=== PATIENT | female | born 1995 | race Caucasian/White ===

== ENCOUNTER 2019-12-22 20:08 | Emergency (ER) | payer MEDICAID, SELFPAY ==
[2019-12-22 20:17] VITALS: BP 126/72; PULSE 103; RESP 18; TEMP 36.1; O2SAT 99
--- NOTE | 2019-12-22 20:23 | ECG_ITS ---
Measurements Intervals [place] Rate: 93 P: 42 [place]: 146 QRS: 39 QRSD: 80 T: 10 QT: 342 QTc: 427 Interpretive Statements SINUS RHYTHM EARLY PRECORDIAL R/S TRANSITION NONSPECIFIC T-WAVE ABNORMALITY- INFERIOR LEADS BASELINE ARTIFACT- II, III, V4-V5 BORDERLINE ECG Electronically Signed On 12-23-2019 7:02:00 CDT by Lenny Abbott D.O.
--- NOTE | 2019-12-22 20:27 | ED.GENADULT ---
HPI - General Adult General Chief complaint: Weakness Stated complaint: weakness, dizziness Time Seen by Provider: 12/22/19 20:17 Source: RN notes reviewed History of Present Illness HPI narrative: Patient presents to emergency department from home for weakness. Patient states that she is approximately 8 weeks and seen her MANUSCRIPT READER yesterday and was diagnosed with a genetic mutation and was started on progesterone folic acid and baby aspirin. States that starting this medication she has been having some feelings of weakness as well as dizziness is worse with standing. She states she has had some associated nausea she denies any fevers or chills chest pain shortness of breath abdominal pain vaginal bleeding or discharge or any other symptoms. Patient states that she is followed by Dr. Christopher's office Related Data Allergies Allergy/AdvReac Type Severity Reaction Status Date / Time No Known Allergies Allergy Unverified 10/19/16 18:13 Review of Systems Review of Systems: Narrative: Gen.: Denies fevers or chills Eyes: Denies eye pain or visual change ENT: Denies congestion Respiratory: Denies shortness of breath or cough CV: Denies chest pain or palpitations GI: Denies abdominal pain or diarrhea. Reports nausea denies burning, urgency, frequency or hematuria Musculoskeletal: Denies back pain or muscle pain Neuro: See HPI Skin: Denies rash Except as documented, all other systems reviewed and negative ON LICENSE OF [facility] Social History Social History (Updated 12/22/19 @ 20:28 by Juan Francisco Sotelo DO) Smoking status: Never smoker Exam Narrative: Exam Narrative: APPEARANCE: No acute distress, nontoxic, resting in bed EYES: EOMI, PERRL HEENT: Normocephalic, atraumatic, OMM RESPIRATORY: No respiratory distress Clear to auscultation bilaterally with no rhonchi wheezing or rales. CARDIOVASCULAR: Regular rate and rhythm without murmurs rubs or gallops. ABDOMINAL: Soft, nontender, nondistended, no rebound or guarding MUSCULOSKELETAl: Moves all extremities. No clubbing, cyanosis or edema. NEURO: Awake and alert. Following commands, speech normal, no focal deficits SKIN:: Warm, dry. No rashes lesions or abrasions PSYCHIATRIC: Normal affect/mood, Course Course Emergency Course: Called and discussed with Dr. Graff for Dr. Perkins presentation work-up. At this time recommends the patient stop taking her folic acid and progesterone. Recommends the patient be started on Macrobid for UTI we will follow the patient as an outpatient Patient states dizziness is improved at this time Discussed with patient results of workup and diagnosis. Discussed need for follow-up with primary care, proper use of medication, and reasons to return to the emergency department. Patient understands and agrees to current treatment plan Vital Signs Vital signs: Vital Signs Temperature 96.9 F L 12/22/19 20:17 Pulse Rate 103 H 12/22/19 20:17 Respiratory Rate 18 12/22/19 20:17 Blood Pressure 126/72 12/22/19 20:17 Pulse Oximetry 99 12/22/19 20:17 Temperature 96.9 F L 12/22/19 20:17 Pulse Rate 102 H 12/22/19 22:45 Respiratory Rate 18 12/22/19 22:45 Blood Pressure 130/79 12/22/19 22:45 Pulse Oximetry 100 12/22/19 22:45 Medical Decision Making Vital Signs Vital Signs: Vital Signs Temperature 96.9 F L 12/22/19 20:17 Pulse Rate 103 H 12/22/19 20:17 Respiratory Rate 18 12/22/19 20:17 Blood Pressure 126/72 12/22/19 20:17 Pulse Oximetry 99 12/22/19 20:17 Temperature 96.9 F L 12/22/19 20:17 Pulse Rate 102 H 12/22/19 22:45 Respiratory Rate 18 12/22/19 22:45 Blood Pressure 130/79 12/22/19 22:45 Pulse Oximetry 100 12/22/19 22:45 Lab Data Result diagrams: 12/22/19 20:50 12/22/19 20:50 Labs: Lab Results 12/22/19 12/22/19 12/22/19 Range/Units 20:50 20:50 22:06 WBC 10.7 H (4.5-10.0) K/mm3 RBC 4.18 L (4.2-5.4) M/mm3 Hgb 11.9 L (12.0-15.0) g
[2019-12-22] MEDS: SODIUM CHLORIDE 0.9% IV 1,000 ML 999 ML IV CONT (20:52)
[2019-12-22 20:56] LABS: Basophils Percent Auto 0.3 % (0.2-1.2); Eosinophils Absolute Auto 0.2 K/mm3 (0-0.3); Eosinophils Percent Auto 1.5 % (0-4.4); Hematocrit 35.6 % (37.0-47.0); Hemoglobin 11.9 g/dL (12.0-15.0); Immature Granulocyte Absolute 0.03 K/mm3 (0.00-0.031); Immature Granulocyte Percent A 0.3 % (0-0.5); Lymphocytes Percent Auto 33.7 % (18.3-44.2); Mean Corpuscular HGB Conc 33.4 g/dl (32-36); Mean Corpuscular Hemoglobin 28.5 pg (26-34); Mean Corpuscular Volume 85.2 fl (80-100); Monocytes Absolute Auto 0.6 K/mm3 (0.1-0.6); Monocytes Percent Auto 5.8 % (2.6-8.5); Neutrophils Absolute Auto 6.3 K/mm3 (1.3-6.7); Neutrophils Percent Auto 58.4 % (45.5-73.1); Platelet Count Result 364 k/mm3 (150-375); Red Blood Count 4.18 M/mm3 (4.2-5.4); Red Cell Distribution Width 13.5 % (11.5-14.5); White Blood Count 10.7 K/mm3 (4.5-10.0)
[2019-12-22 21:05] VITALS: BP 125/77; PULSE 95; RESP 18; O2SAT 100
[2019-12-22 21:08] LABS: Alanine Aminotransferase 23 U/L (4-35); Albumin Level 4.1 g/dL (3.5-5.1); Alkaline Phosphatase 53 U/L (38-126); Anion Gap 9 mmol/L (8-16); Aspartate Amino Transferase 25 U/L (14-36); Bilirubin,Total 0.2 mg/dL (0.2-1.3); Blood Urea Nitrogen 8 mg/dL (7-17); Calcium 9.3 mg/dL (8.4-10.2); Carbon Dioxide 26 mmol/L (22-30); Chloride 102 mmol/L (98-107); Estimated CRCL calculation 126 ml/min; Estimated Glomerular Filt Rate > 60; Glucose 103 mg/dL (65-105); Potassium 3.6 mmol/L (3.4-5.0); Sodium 137 mmol/L (137-145)
--- NOTE | 2019-12-22 21:45 | PC.NURSE ---
pt ambulated to restroom w/ no difficulty. denies dizziness.
[2019-12-22 22:14] VITALS: BP 127/79; BP 132/79; BP 136/78; PULSE 103; PULSE 105
[2019-12-22 22:15] LABS: Add Urine Microscopic? YES; Appearance Urine Cloudy (Clear); Bacteria Urine 2+ /hpf; Bilirubin Urine Negative (Negative); Blood Urine Negative (Negative); Color Urine Yellow (Yellow); Glucose Urine UA Negative (Negative); Ketones Urine Negative (Negative); Leukocyte Esterase Ur 3+ LEU/UL (Negative); Mucus Urine Rare /lpf; Nitrate Urine Negative (Negative); Protein Urine 1+ mg/dL (Negative); Squamous Epithelial Cell Urine Many /hpf (Few); WBC Urine 31-50 /hpf
[2019-12-22 22:45] VITALS: BP 130/79; PULSE 102; RESP 18; O2SAT 100
[2019-12-22 23:46] VITALS: BP 123/74; PULSE 96; RESP 18; O2SAT 100
== END 2019-12-22 23:47 | disposition home or self-care (01) ==
PROVIDERS: Emergency Provider Emergency Medicine
DX: N39.0 Urinary tract infection, site not specified (principal); R42 Dizziness and giddiness; R94.31 Abnormal electrocardiogram [ECG] [EKG]
CPT/HCPCS: 36415; 80053; 81001; 85025; 87086; 87088; 93005; 96361; 96365; 99284; J0696; J7030

== ENCOUNTER 2020-01-02 13:13 | Outpatient (CLI) | payer MEDICAID, SELFPAY ==
[2020-01-02 15:52] LABS: Glucose 1 Hour PP 50gm Dose 124 mg/dL
[2020-01-04 12:24] LABS: CMV IgG Antibody >10.00 U/mL (<0.60)
[2020-01-05 11:34] LABS: Homocysteine 5.8 umol/L (<10.4)
== END 2020-01-02 13:14 | disposition home or self-care (01) ==
LOC: ANHLAB 13:15
PROVIDERS: PCP Emergency Medicine; Visit Provider Obstetrics & Gynecology
DX: Z34.91 Encounter for supervision of normal pregnancy, unspecified, first trimester (principal); E66.9 Obesity, unspecified; Z3A.00 Weeks of gestation of pregnancy not specified
CPT/HCPCS: 36415; 82947; 83090; 86644; 86747

== ENCOUNTER 2020-03-16 15:30 | Observation (INO) | payer OTHER, SELFPAY ==
[2020-03-16 15:30] VITALS: BMI 35.0
[2020-03-16 16:27] VITALS: BP 117/65; PULSE 99; TEMP 36.3
[2020-03-16 16:31] VITALS: BP 77/44; PULSE 105
[2020-03-16 16:33] VITALS: BP 93/66; PULSE 105
[2020-03-16 16:34] VITALS: BP 93/66; PULSE 105
[2020-03-16 16:40] LABS: Add Urine Microscopic? YES; Amorphous Sediment Urine Few; Appearance Urine Clear (Clear); Bacteria Urine Trace /hpf; Bilirubin Urine Negative (Negative); Blood Urine Negative (Negative); Color Urine Yellow (Yellow); Glucose Urine UA Negative (Negative); Ketones Urine Negative (Negative); Leukocyte Esterase Ur 1+ LEU/UL (Negative); Mucus Urine Rare /lpf; Nitrate Urine Negative (Negative); Protein Urine Negative (Negative); RBC Urine 0-2 /hpf (0-2); Specific Grav Ur 1.016 (1.001-1.035); Squamous Epithelial Cell Urine Few /hpf (Few); Urobilinogen Urine Negative mg/dL (<2.0)
--- NOTE | 2020-03-16 17:01 | LDADM ---
This patient, Maren Booker, was admitted to OB Post 113 on 03/16/20 at 15:30. Plans for labor, pain management and were discussed with patient. Patient/family oriented to hospital policies and general routines including ID bracelet, bed and alarms, visiting hours, pain management, procedures, bathroom and other care routines, personal items, smoking policy, room service/diet and guest tray routines, infant security routines, and visiting hours. Patient/Family are encouraged to report perceived risks to care and to ask questions if they do not understand what they are told or what they should do. See OBIX for further documentation.
--- NOTE | 2020-03-16 17:01 | OBADM ---
This patient, Maren Booker, admitted to the OB room OB Post 113 for observation. Patient/family oriented to hospital policies and general routines including ID bracelet, bed and alarms, visiting hours, pain management, procedures, bathroom and other care routines, personal items, smoking policy, room service/diet, and visiting hours. Patient/Family are encouraged to report perceived risks to care and to ask questions if they do not understand what they are told or what they should do.
--- NOTE | 2020-03-17 08:45 | PM.OBTRLD ---
OB - Triage/Final Diagnosis Evaluation Laboratory results: Laboratory Tests 03/16/20 16:29 Urine Color Yellow Urine Appearance Clear Urine pH 6.0 Ur Specific [place] 1.016 Urine Protein Negative Urine Glucose (UA) Negative Urine Ketones Negative Ur Blood (Man) Negative Urine Nitrate Negative Urine Bilirubin Negative Urine Urobilinogen Negative Leukocyte Esterase Rfl 1+ H Urine RBC 0-2 Urine WBC 7-9 H Ur Squamous Epith Cells Few Amorphous Sediment Few H Urine Bacteria Trace Urine Mucus Rare Vital signs: Vital Signs - 24 hr 03/16/20 16:27 03/16/20 16:31 03/16/20 16:33 Temperature 36.3 C L Pulse Rate 99 105 H 105 H Blood Pressure 117/65 77/44 L 93/66 L 03/16/20 16:34 Temperature Pulse Rate 105 H Blood Pressure 93/66 L Final Diagnosis (1) Abdominal pain affecting : Code(s): O26.899 - Other specified related conditions, unspecified trimester; R10.9 - Unspecified abdominal pain Status: Acute
== END 2020-03-16 17:20 | disposition home or self-care (01) ==
PROVIDERS: Admitting Provider Obstetrics & Gynecology; PCP Emergency Medicine; Visit Provider Obstetrics & Gynecology
DX: O26.899 Other specified pregnancy related conditions, unspecified trimester (principal); R10.9 Unspecified abdominal pain; Z3A.00 Weeks of gestation of pregnancy not specified
CPT/HCPCS: 81001; 87086; 87088; G0378; G0379

== ENCOUNTER 2020-04-26 18:04 | Outpatient (RCR) | payer OTHER, SELFPAY ==
[2020-04-26 18:50] VITALS: BP 124/71; PULSE 118
--- NOTE | 2020-04-28 07:00 | PM.OBTRLD ---
OB - Triage/Final Diagnosis Visit Information Comments/Additional reasons for admission: I have assessed the risk for this patient, Maren Booker, and determined that she would benefit from observation care. Final Diagnosis (1) Decreased movement: Code(s): O36.8190 - Decreased movements, unspecified trimester, not applicable or unspecified Status: Acute
== END 2020-07-11 10:47 | disposition home or self-care (01) ==
LOC: ANHOBOP 18:04
PROVIDERS: PCP Obstetrics & Gynecology; Visit Provider Obstetrics & Gynecology
DX: O36.8120 Decreased fetal movements, second trimester, not applicable or unspecified (principal); Z3A.24 24 weeks gestation of pregnancy
CPT/HCPCS: 59025

== ENCOUNTER 2020-05-14 16:27 | Observation (INO) | payer OTHER, SELFPAY ==
[2020-05-14 16:48] VITALS: BP 127/69; PULSE 117
[2020-05-14 17:01] VITALS: BP 97/56; PULSE 112; TEMP 36.6
[2020-05-14 17:02] VITALS: BMI 36.6
--- NOTE | 2020-05-14 17:08 | OBADM ---
This patient, Maren Booker, admitted to the OB room 119 at 1627 for observation for pelvic pressure. Patient/family oriented to hospital policies and general routines including ID bracelet, bed and alarms, visiting hours, pain management, procedures, bathroom and other care routines, personal items, smoking policy, room service/diet, and visiting hours. Patient/Family are encouraged to report perceived risks to care and to ask questions if they do not understand what they are told or what they should do.
[2020-05-14 17:17] LABS: Add Urine Microscopic? YES; Appearance Urine Cloudy (Clear); Bacteria Urine 1+ /hpf; Bilirubin Urine Negative (Negative); Blood Urine Negative (Negative); Color Urine Yellow (Yellow); Glucose Urine UA Negative (Negative); Ketones Urine Negative (Negative); Leukocyte Esterase Ur 3+ LEU/UL (Negative); Mucus Urine Rare /lpf; Nitrate Urine Negative (Negative); Protein Urine 1+ mg/dL (Negative); Squamous Epithelial Cell Urine Moderate /hpf (Few); Urobilinogen Urine Negative mg/dL (<2.0); WBC Urine 31-50 /hpf
--- NOTE | 2020-05-16 10:39 | PM.OBTRLD ---
OB - Triage/Final Diagnosis Visit Information Comments/Additional reasons for admission: I have assessed the risk for this patient, Maren Booker, and determined that she would benefit from observation care. Evaluation Laboratory results: Laboratory Tests 05/14/20 17:07 Urine Color Yellow Urine Appearance Cloudy H Urine pH 6.0 Ur Specific [place] 1.020 Urine Protein 1+ H Urine Glucose (UA) Negative Urine Ketones Negative Ur Blood (Man) Negative Urine Nitrate Negative Urine Bilirubin Negative Urine Urobilinogen Negative Leukocyte Esterase Rfl 3+ H Urine RBC 3-5 H Urine WBC 31-50 H Ur Squamous Epith Cells Moderate H Urine Bacteria 1+ H Urine Mucus Rare Final Diagnosis (1) UTI (urinary tract infection) during : Code(s): O23.40 - Unspecified infection of urinary tract in , unspecified trimester Status: Acute
== END 2020-05-14 18:00 | disposition home or self-care (01) ==
PROVIDERS: Admitting Provider Obstetrics & Gynecology; Visit Provider Obstetrics & Gynecology
DX: O23.42 Unspecified infection of urinary tract in pregnancy, second trimester (principal); Z3A.27 27 weeks gestation of pregnancy
CPT/HCPCS: 81001; 87086; 87088; G0378; G0379

== ENCOUNTER 2020-07-02 14:52 | Outpatient (RCR) | payer OTHER, SELFPAY ==
--- NOTE | ~2020-07-02 | US_ITS ---
EXAMINATION: US OB limited w BPP DATE: 07/02/2020 16:34 INDICATION: Decreased movement. Third trimester. TECHNIQUE: Real-time pelvic ultrasound was performed. COMPARISON: None. FINDINGS: There is a single living fetus in vertex presentation. The placenta is posterior. heart rate i s 152 beats per minute (bpm). The amniotic fluid index is 12.6 cm, which is normal. Biophysical profile performed by the technologist: breathing (30 sec sustained breathing in 30 minutes): 2 out of 2 movement (3 gross body movements in 30 minutes): 2 out of 2 tone (one episode of bpzcmhu-qcphifhyy-zdqhaer limb movement): 2 out of 2 Amniotic fluid pocket (2 cm): 2 out of 2 Total score: 8 out of 8 IMPRESSION: 1. Single living fetus in vertex presentation. 2. Biophysical profile 8 out of 8. Reviewed, dictated and finalized at location A.
[2020-07-02 16:45] VITALS: BP 111/69; PULSE 120
== END 2020-08-08 07:33 | disposition home or self-care (01) ==
LOC: ANHOBOP 14:52
PROVIDERS: Visit Provider Obstetrics & Gynecology
DX: O36.5930 Maternal care for other known or suspected poor fetal growth, third trimester, not applicable or unspecified (principal); Z3A.34 34 weeks gestation of pregnancy
CPT/HCPCS: 59025; 76815; 76819

== ENCOUNTER 2020-07-23 15:42 | Observation (INO) | payer OTHER, SELFPAY ==
[2020-07-23 16:06] VITALS: BP 114/66; PULSE 101
[2020-07-23 16:15] VITALS: BP 113/73; PULSE 108
[2020-07-23 16:30] VITALS: BP 112/68; PULSE 111
[2020-07-23 16:45] VITALS: BP 115/74; PULSE 104
[2020-07-23 17:18] VITALS: BMI 35.2
--- NOTE | 2020-07-23 17:23 | PC.NURSE ---
Notifed Dr Reyes of pt status and orders to discharge home follow up with scheduled visit.
--- NOTE | 2020-07-25 12:32 | PM.OBTRLD ---
OB - Triage/Final Diagnosis Visit Information Comments/Additional reasons for admission: I have assessed the risk for this patient, Maren Booker, and determined that she would benefit from observation care. Final Diagnosis (1) Vaginal discharge during : Code(s): O26.899 - Other specified related conditions, unspecified trimester; N89.8 - Other specified noninflammatory disorders of vagina Status: Acute
== END 2020-07-23 17:30 | disposition home or self-care (01) ==
LOC: ANHOBPP 17:10 → ANHOBOP 07-25 09:24 → ANHOBPP 07-25 09:25
PROVIDERS: Admitting Provider Obstetrics & Gynecology; Visit Provider Obstetrics & Gynecology
DX: O26.893 Other specified pregnancy related conditions, third trimester (principal); N89.8 Other specified noninflammatory disorders of vagina; Z3A.37 37 weeks gestation of pregnancy
CPT/HCPCS: 59025; 84112; G0378; G0379

== ENCOUNTER 2020-07-27 05:15 | Observation (INO) | payer OTHER, SELFPAY ==
--- NOTE | 2020-07-27 05:15 | OBADM ---
This patient, Maren Booker, admitted to the OB room Labor/Delivery/Recovery 106 for observation. Patient/family oriented to hospital policies and general routines including ID bracelet, bed and alarms, visiting hours, pain management, procedures, bathroom and other care routines, personal items, smoking policy, room service/diet, and visiting hours. Patient/Family are encouraged to report perceived risks to care and to ask questions if they do not understand what they are told or what they should do.
[2020-07-27 05:35] VITALS: BP 110/77; PULSE 105
[2020-07-27 05:46] VITALS: BP 99/65; PULSE 101
[2020-07-27 06:01] VITALS: BP 99/64; PULSE 107
[2020-07-27 06:15] VITALS: BP 99/68; PULSE 98
[2020-07-27 06:22] VITALS: BMI 38.3
[2020-07-27 06:30] VITALS: BP 117/82; PULSE 102
--- NOTE | 2020-07-31 06:05 | PM.OBTRLD ---
OB - Triage/Final Diagnosis Visit Information Comments/Additional reasons for admission: I have assessed the risk for this patient, Maren Booker, and determined that she would benefit from observation care. Final Diagnosis (1) Abdominal pain affecting : Code(s): O26.899 - Other specified related conditions, unspecified trimester; R10.9 - Unspecified abdominal pain Status: Acute
== END 2020-07-27 06:50 | disposition home or self-care (01) ==
PROVIDERS: Admitting Provider Obstetrics & Gynecology; Visit Provider Obstetrics & Gynecology
DX: O26.899 Other specified pregnancy related conditions, unspecified trimester (principal); R10.9 Unspecified abdominal pain; Z3A.00 Weeks of gestation of pregnancy not specified
CPT/HCPCS: G0378; G0379

== ENCOUNTER 2020-08-06 06:57 | Inpatient (IN) | payer OTHER, SELFPAY ==
[2020-08-06] VITALS (225 sets, daily range): BP systolic 72–135; BP diastolic 39–103; PULSE 25–176; TEMP 35.8–36.8; O2SAT 82–100; BMI 38.4
--- OUTSIDE RECORDS SUMMARY | 2020-08-06 07:01 | XMS_ITS | Encounter Summary ---
:1995 Author Reason for Visit return OB visit Assessment and Plan 1. Routine care ? glucose tolerance test, ge stational, 1-hour ? HIV (1+2) Ab screen, serum ? CBC Discussion Note: None recorded.Patient educational handouts: No information available. Plan of Care Reminders Provider Appointments None ? ? recorded. Lab Glucose [place] [facility] Tolerance Test, 05/06/2020 Hospital (Lab) Gestational, 1-Hour ? HIV (1+2) Ab [address] [facility] Screen, Serum 05/06/2020 Hospital (Lab) ? Cbc [place] [facility] 05/06/2020 [facility] (Lab) Referral None ? ? recorded. Procedures None ? ? recorded. Surgeries None ? ? recorded. Imaging None ? ? recorded. Medications Name Start Date ? ? clotrimazole 1 % vaginal cream ? INSERT 1 APPLICATORFUL EVERY DAY BY VAGINAL ROUTE AT BEDTIME. ondansetron HCl 4 mg tablet 04/08/2020 TK 2 TS PO BID Notes: PNV; iron supplement wilder y Medications Administered None recorded. Vitals Weight Blood Pressure 198.4 lbs 112/74 mm[Hg]
--- OUTSIDE RECORDS SUMMARY | 2020-08-06 07:01 | XMS_ITS | Encounter Summary ---
:1995 Author Reason for Visit return OB visit Assessment and Plan 1. Routine care Discussion Note: None recorded.Patient educational handouts: No information available. Plan of Care Reminders Provider Appointments None ? ? recorded. Lab None ? ? recorded. Referral None ? ? recorded. Procedures None [...] Administered None recorded. Vitals Weight Blood Pressure 199 lbs 108/62 mm[Hg] Results Lab Results None recorded. Allergies Code Code System Name Reaction Severity Onset NKDA ? ? ? Problems Name Status Onset Date Source ? Active 12/31/2019 History Procedures Date Name Performed by ? ? [facility] Information not avai lab
--- OUTSIDE RECORDS SUMMARY | 2020-08-06 07:01 | XMS_ITS ---
:1995 Author Care Team Providers Name Role Phone DAVINA DAVIDOSN MD Primary Care Provider [phone] Allergies Code Code System Name Reaction Severity Status Onset NKDA ? Medications Name Status Start Date Stop Date ? ? aspirin 81 mg tablet,delayed release Completed ? 04/08/2020 TK 1 T PO QD folic acid 1 mg tablet Completed ? Take 1 tablet 4 times a day by oral route for 90 days. nitrofurantoin monohydrate/macrocrystals 100 mg capsule Complete d ? 12/31/2019 TK 1 C PO BID ondansetron HCl 4 mg tablet Active 04/08/2020 Not available TK 2 TS PO BID progesterone micronized 200 mg capsule Completed ? 01/28/2020 TK 1 C PO BID Notes: PNV Problems Name Status Onset Date Source ? Active 12/31/2019 ? Procedures Date Name Performed by ? ? Extraction of [place] [facility] Information n ot available 12/31/2019 US, Obstetric, Transvaginal [facility] (One Call Scheduling) [address], [place] [address] (Work Place) Results Lab Results Date Name Specimen Result Interpretation Description Value Range Status Address ? 01/02/2020 Glucose ? No observation ? ? ? [facility] Tolerance Test, recorded. Hospital Gestational,
--- OUTSIDE RECORDS SUMMARY | 2020-08-06 07:01 | XMS_ITS | Encounter Summary ---
[...] Administered None recorded. Vitals Weight Blood Pressure 205 lbs 122/82 mm[Hg] Results Lab Results None recorded. Allergies Code Code System Name Reaction Severity Onset NKDA ? ? ? Problems Name Status Onset Date Source ? Active 12/31/2019 History Procedures Date Name Performed by ? ? [place] [facility] Information not avai labl
--- OUTSIDE RECORDS SUMMARY | 2020-08-06 07:01 | XMS_ITS | Encounter Summary ---
[...] Administered None recorded. Vitals Weight Blood Pressure 200 lbs 110/64 mm[Hg] Results Lab Results None recorded. Allergies Code Code System Name Reaction Severity Onset NKDA ? ? ? Problems Name Status Onset Date Source ? Active 12/31/2019 History Procedures Date Name Performed by ? ? [place] [facility] Information not sooai rosetta
--- OUTSIDE RECORDS SUMMARY | 2020-08-06 07:01 | XMS_ITS ---
:1995 Author Care Team Providers Name Role Phone Maxx Graff Primary Care Provider Unavailable Allergies Code Code System Name Reaction Severity Status Onset NKDA ? Medications Name Status Start Date Stop Date ? ? aspirin 81 mg tablet,delayed release Active ? Not available TK 1 T PO QD clotrimazole 1 % vaginal cream Active ? N ot available INSERT 1 APPLICATORFUL EVERY DAY BY VAGINAL ROUTE AT BEDTIME. folic acid 1 mg tablet Active ? Not avail able TK 1 T PO QID UTD nitrofurantoin monohydrate/macrocrystals 100 mg capsule Complete d ? 06/03/2020 TAKE 1 CAPSULE BY MOUTH TWICE A DAY FOR 7 DAYS ondansetron HCl 4 mg tablet Active 04/08/2020 Not available TK 2 TS PO BID progesterone micronized 200 mg capsule Active ? Not available TK 1 C PO BID Notes: PNV; iron supplement wilder y Problems Name Status Onset Date Source ? Active 12/31/2019 History Procedures Date Name Performed by ? ? [place] [facility] Information not avai lable Results Lab Results Date Name Specimen Result Interpretation Description Value Range Status Address ? 07/09/2020 Streptococcus ? Strep Gp B negative negati ve Final [facility]: Group B, [id number], [address], Specimen
--- OUTSIDE RECORDS SUMMARY | 2020-08-06 07:01 | XMS_ITS | Encounter Summary ---
:1995 Author Reason for Visit return OB visit Assessment and Plan 1. Routine care 2. Vaginal irritation ? clotrimazole 1 % vaginal c ream Discussion Note: None recorded.Patient educational handouts: No [...] Administered None recorded. Vitals Weight Blood Pressure 203.2 lbs 122/82 mm[Hg] Results Lab Results None recorded. Allergies Code Code System Name Reaction Severity Onset NKDA ? ? ? Problems Name Status Onset Date Source ? Active 12/31/2019 History Procedures Date Name Performed by ?
--- OUTSIDE RECORDS SUMMARY | 2020-08-06 07:01 | XMS_ITS | Encounter Summary ---
:1995 Author Reason for Visit return OB visit Assessment and Plan 1. Routine care ? culture, urine + sensitivi ty Discussion Note: None recorded.Patient educational handouts: No information available. Plan of Care Reminders Provider Appointments None recorded. ? ? Lab Culture, Urine [facility] + Sensitivity 06/03/2020 Hospital (Lab) Referral None recorded. ? ? Procedures None recorded. ? ? Surgeries None recorded. ? ? Imaging None recorded. ? ? Medications Name Start Date ? ? clotrimazole 1 % vaginal cream ? INSERT 1 APPLICATORFUL EVERY DAY BY VAGINAL ROUTE AT BEDTIME. ondansetron HCl 4 mg tablet 04/08/2020 TK 2 TS PO BID Notes: PNV; iron supplement wilder y Medications Administered None recorded. Vitals Weight Blood Pressure 200 lbs 130/80 mm[Hg] Results Lab Results Date Name Specimen Result Interpretation Description Value Range Status Address ? 07/08/2020 Culture, Urine ? No observation ? ? ? [place] + Sensitivity recorded. [facility] (Lab): [address] 0
--- OUTSIDE RECORDS SUMMARY | 2020-08-06 07:01 | XMS_ITS | Encounter Summary ---
:1995 Author Reason for Visit new OB visit Assessment and Plan 1. Routine [...] recorded. Vitals Weight Blood Pressure 203.2 lbs 118/70 mm[Hg] Results Lab Results None recorded. Allergies Code Code System Name Reaction Severity Onset NKDA ? ? ? Problems Name Status Onset Date Source ? Active 12/31/2019 History Procedures Date Name Performed by ? ? [place] [facility] Information not sooai rosetta
--- OUTSIDE RECORDS SUMMARY | 2020-08-06 07:01 | XMS_ITS | Encounter Summary ---
:1995 Author Reason for Visit return OB visit Assessment and Plan 1. Routine care ? streptococcus group B, cul ture, unspecified specimen Discussion Note: None recorded.Patient educational handouts: No information available. Plan of Care Reminders Provider Appointments None recorded. ? ? Lab Streptococcus [facility], Culture, 07/09/2020 Hospital (Lab) Unspecified Specimen Referral None recorded. ? ? Procedures None [...] Administered None recorded. Vitals Weight Blood Pressure 202.4 lbs 118/80 mm[Hg] Results Lab Results Date Name Specimen Result Interpretation Description Value Range Status Address ? 07/09/2020 Streptococcus ? Strep Gp negative negative Final [facility]: Group B, [id number], [address], Unspecified
--- NOTE | 2020-08-06 07:14 | PM.IMHP ---
H&P: HPI History of Present Illness Date/Time: 08/06/20 07:14 Maren is a 25yo @ 39.2wks (SALO 08/11/20) who presents for elective IOL. She has had regular care with Erica ELDRIDGE. She reports irregular contractions. No VB or LOF. Good movement. Her is complicated by: - Obesity; BMI 37 - Varicella non-immune Chief Complaint: induction of labor Review of Systems Review of Systems: All systems reviewed & are unremarkable except as noted in HPI and below (HPI) [facility] Family History Family History Other Unknown family medical history Social History Social History Smoking status: Never smoker Substance use: never Spiritual care concerns: No Meds Home Medications and Allergies Home Medications Medication Instructions Recorded Confirmed Type vit-ferrous sulfat-FA 1 tablet PO DAILY 03/16/20 07/27/20 History ondansetron HCl 4 mg PO Q8H PRN 05/14/20 05/14/20 History ondansetron HCl 4 mg PO Q4-6H PRN 07/27/20 07/27/20 History Allergies Allergy/AdvReac Type Severity Reaction Status Date / Time No Known Allergies Allergy Verified 07/15/20 12:41 Exam Const: General: cooperative, comfortable and no acute distress Nutritional Appearance: obese Resp: Effort & Inspection: normal respiratory effort and able to speak in complete sentences Cardio: Rate: regular rate GI: Inspection: non-distended GI Palp: No abdominal tenderness and Yes Soft to palpation : Other: FHT's: 150's/ mod kunal/ + accels/ no decels - cat 1 TOCO: irregular ctx's Cervix: 2/50/-2, anterior, soft Membranes: intact, GBS negative Presentataion: cephalic Skin: General skin exam: normal color Neuro: General: patient oriented x3 Extrem: General: normal to inspection Psych: Appearance: grossly normal Affect: normal affect Attitude: cooperative Assessment and Plan Assessment and plan (1) : Qualifiers: Weeks of gestation: 39 weeks Qualified Code(s): Z3A.39 - 39 weeks gestation of Code(s): Z34.90 - Encounter for supervision of normal , unspecified, unspecified trimester Status: Acute (2) Encounter for induction of labor: Code(s): Z34.90 - Encounter for supervision of normal , unspecified, unspecified trimester Status: Acute Additional Plan - Admit to L&D for elective IOL - Pitocin per protocol - Continuous monitoring; currently reassuring - GBS negative; abx not indicated - Anesthesia consult PRN pain
--- NOTE | 2020-08-06 07:30 | WPDHPUPDATE1 ---
History and Physical Update Update Date/Time: 08/06/20 07:30 History and Physical has been reviewed, including an updated exam of the patient. There are NO changes in the patient's condition. Risks, benefits, and alternatives have been discussed and questions answered. Patient agrees to proceed with procedure.
[2020-08-06 07:58] LABS: Basophils Percent Auto 0.2 % (0.2-1.2); Eosinophils Absolute Auto 0.1 K/mm3 (0-0.3); Eosinophils Percent Auto 0.7 % (0-4.4); Hemoglobin 10.6 g/dL (12.0-15.0); Immature Granulocyte Absolute 0.02 K/mm3 (0.00-0.031); Immature Granulocyte Percent A 0.2 % (0-0.5); Lymphocytes Absolute Auto 2.03 K/mm3 (0.9-3.2); Lymphocytes Percent Auto 24.7 % (18.3-44.2); Mean Corpuscular HGB Conc 32.1 g/dl (32-36); Mean Corpuscular Hemoglobin 27.4 pg (26-34); Mean Corpuscular Volume 85.3 fl (80-100); Mean Platelet Volume 11.4 fl (7.4-10.4); Monocytes Absolute Auto 0.5 K/mm3 (0.1-0.6); Monocytes Percent Auto 5.8 % (2.6-8.5); Neutrophils Absolute Auto 5.6 K/mm3 (1.3-6.7); Neutrophils Percent Auto 68.4 % (45.5-73.1); Platelet Count Result 245 k/mm3 (150-375); Red Blood Count 3.87 M/mm3 (4.2-5.4); Red Cell Distribution Width 15.2 % (11.5-14.5); White Blood Count 8.2 K/mm3 (4.5-10.0)
[2020-08-06] MEDS: OXYTOCIN 30 UNITS/NS 500 ML 30 UNITS/500 ML BAG 6 UNITS IV CONT (08:01)
[2020-08-06] MEDS: LACTATED RINGERS 1,000 ML 125 ML IV CONT ×3 (08:01→19:02)
--- NOTE | 2020-08-06 08:32 | P.PNAN_ITS ---
Anes - Eval Pre Procedure Procedure: labor epidural Date/Time: 08/06/20 08:32 Surgeon: Gamal Preop Diagnosis: Pain during labor Pre Op Diagnosis: induction Patient Data Age: 25 Gender: F Height: Weight: Last Vital Signs Temp 36.8 C 08/06/20 07:53 Pulse 103 H 08/06/20 08:00 BP 122/74 08/06/20 08:00 Allergies Allergy/AdvReac Type Severity Reaction Status Date / Time No Known Allergies Allergy Verified 07/15/20 12:41 Home Medications Medication Instructions Recorded Confirmed Type vit-ferrous sulfat-FA 1 tablet PO DAILY 03/16/20 08/06/20 History Laboratory Tests 08/06/20 08/06/20 07:45 07:45 WBC 8.2 K/mm3 K/mm3 (4.5-10.0) RBC 3.87 M/mm3 L M/mm3 (4.2-5.4) Hgb 10.6 g/dL L g/dL (12.0-15.0) Hct 33.0 % L % (37.0-47.0) MCV 85.3 fl fl (80-100) MCH 27.4 pg pg (26-34) MCHC 32.1 g/dl g/dl (32-36) RDW 15.2 % H % (11.5-14.5) Plt Count 245 k/mm3 k/mm3 (150-375) MPV 11.4 fl H fl (7.4-10.4) Immature Gran % (Auto) 0.2 % % (0-0.5) Neut % (Auto) 68.4 % % (45.5-73.1) Lymph % (Auto) 24.7 % % (18.3-44.2) [place] % (Auto) 5.8 % % (2.6-8.5) Eos % (Auto) 0.7 % % (0-4.4) Baso % (Auto) 0.2 % % (0.2-1.2) Lymph # (Auto) 2.03 K/mm3 K/mm3 (0.9-3.2) [place] # (Auto) 0.5 K/mm3 K/mm3 (0.1-0.6) Eos # (Auto) 0.1 K/mm3 K/mm3 (0-0.3) Baso # (Auto) 0.0 K/mm3 K/mm3 (0.0-0.1) Abs Immat Gran (auto) 0.02 K/mm3 K/mm3 (0.00-0.031) Absolute Neuts (auto) 5.6 K/mm3 K/mm3 (1.3-6.7) Absolute Nucleated RBC 0.0 K/mm3 K/mm3 (0.0-0.012) Nucleated RBC % 0.0 % % (0.0-0.2) RPR Pending Patient hx anesthesia problems: none Family hx anesthesia problems: none [facility] Family History Family History Other Unknown family medical history Social History Social History Smoking status: Never smoker Substance use: never Spiritual care concerns: No Exam Day of Procedure 08/06/20 08:32 Patient weight: obese Neurological: alert and oriented
[2020-08-06 09:49] LABS: Rapid Plasma Reagin Non-Reactive (NonReactive)
--- NOTE | 2020-08-06 09:49 | LDADM ---
This patient, Maren Booker, was admitted to Labor/Delivery/Recovery 108 on 08/06/20 at 06:57. Plans for labor, pain management and were discussed with patient. Patient/family oriented to hospital policies and general routines including ID bracelet, bed and alarms, visiting hours, pain management, procedures, bathroom and other care routines, personal items, smoking policy, room service/diet and guest tray routines, security routines, and visiting hours. Patient/Family are encouraged to report perceived risks to care and to ask questions if they do not understand what they are told or what they should do. See OBIX for further documentation.
[2020-08-06] MEDS: fentaNYL CITRATE INJ (*CRX) 100 MCG/2 ML VIAL 50 MCG IV PUSH (10:31)
--- NOTE | 2020-08-06 12:02 | PM.OBPNLAB ---
Pain Control Date/time seen: 08/06/20 12:02 Pain control: narcotic analgesia Pelvic Exam Dilation (cm): 2 (.5) Effacement (%): 50 station: -3 Amniotic membrane status: Ruptured (clear, AROM 1200) Contractions Monitor mode: External Contraction frequency: 2 (-3) Contraction pattern: Regular Status status: Category l Assessment and Plan Pitocin rate (mU/min): 10 Assessment: induction ongoing Plan: continuous present management Comments: - anesthesia consult PRN pain
[2020-08-06] MEDS: ONDANSETRON INJ 4 MG/2 ML VIAL IV PUSH (14:39)
[2020-08-06] MEDS: SODIUM CHLORIDE 0.9% IV 300 ML 600 ML I-UTERINE (15:51)
--- NOTE | 2020-08-06 16:57 | PM.OBPNLAB ---
Pain Control Date/time seen: 08/06/20 16:57 Pain control: epidural Pelvic Exam Dilation (cm): 4 (.5) Effacement (%): 80 station: -2 Amniotic membrane status: Ruptured (clear, AROM 1200) Contractions Monitor mode: Internal Contraction frequency: 2 (-3) Contraction pattern: Regular Intrauterine tone measurement: 210 Status status: Category ll Comments: variables; now s/p amnio and improved Assessment and Plan Pitocin rate (mU/min): 12 Assessment: induction ongoing Plan: continuous present management
[2020-08-07] VITALS (129 sets, daily range): BP systolic 100–133; BP diastolic 52–101; PULSE 25–155; RESP 18–20; TEMP 36.1–36.8; O2SAT 86–100
[2020-08-07] MEDS: AMPICILLIN 2 GM/NS 100 ML 2 GM/100 ML BAG IVPB (06:12)
--- NOTE | 2020-08-07 06:45 | PM.OBPNLAB ---
Pain Control Date/time seen: 08/07/20 06:45 Pain control: epidural Pelvic Exam Dilation (cm): 10 (.5) Effacement (%): 100 station: 0 Amniotic membrane status: Ruptured (clear, AROM 1200 on 08/06/20) Contractions Monitor mode: Internal Contraction frequency: 2 (-3) Contraction pattern: Regular Intrauterine tone measurement: 210 Status status: Category l Assessment and Plan Assessment: active labor Comments: will begin pushing soon; pt not feeling much pressure yet (epidural was just bolused)
[2020-08-07] MEDS: OXYTOCIN 30 UNITS/NS 500 ML 30 UNITS/500 ML BAG 125 UNITS IV CONT (08:25)
--- NOTE | 2020-08-07 08:30 | PM.OBPRVD ---
OB - Delivery Note Procedure Delivery date: 08/07/20 events: Labor Induction Intrapartal events: Prolonged Labor > 20 hours and Deceleration Induction method: per pitocin protocol Delivery augmentation: rupture of membranes Delivery monitor: external FHT and internal uterine Route of delivery: Laceration Description: Perineal - 2nd Degree and Labial (extending to R labia) Delivery repair: vicryl Quantitative Blood Loss (ml): 148 Anesthesia type: Epidural Disposition: floor [place] Baby Date of : 08/07/20 Time of : 08:07 Weeks of gestation at delivery: 39 (.3) gender: Male Weight (pounds): 7 Weight (ounces): 0 presentation: vertex position: Right Occiput Anterior Placenta delivery description: Expressed cord vessel description: 3 Vessels and Delayed Cord Clamping score one minute: 7 score five minutes: 9 Narrative: Maren progressed to complete dilation. She pushed for approximately 1 hour with good effort. She delivered the head over intact perineum. No nuchal cord was palpated. She easily delivered the shoulders and body without complications. The infant was immediately placed skin to skin, with stimulation he then cried. Delayed cord clamping was performed. The cord was then clamped and cut. A segment of cord was collected for cord gases. The remaining cord blood was collected for typing. With Pitocin running and gentle downward traction on the umbilical cord, the placenta delivered without complications. Bleeding was noted and bimanual exam showed slight uterine atony which responded to massage. The patient was examined and a second-degree perineal laceration was found extending into the right labia. The second-degree perineal laceration was repaired using 2 0 Vicryl in a normal fashion. The right labial laceration was repaired using 2 separate 3 0 Vicryl U-stitches, and was reapproximated well. Good fundal tone was palpated with minimal bleeding. Sponge, lap, instrument, and needle counts were correct at the end of the procedure. Mom and baby were left bonding in the birthing suite in stable condition.
[2020-08-07] MEDS: BENZOCAINE 20% AER SPR (*SP) 56 GM CAN 1 SPRAY TOPICAL (09:13)
[2020-08-07] MEDS: IBUPROFEN 600 MG TABLET PO ×3 (09:14→23:06)
[2020-08-07] MEDS: HYDROcodone/acetaminophen (*CRX) 5-325 MG TABLET 1 TAB PO ×2 (09:15→16:30)
[2020-08-07] MEDS: WITCH HAZEL 40 PADS 1 PAD TOPICAL (09:31)
--- NOTE | 2020-08-07 11:10 | PC.NURSE ---
Patient transferred to post room #279 per wheelchair from labor and delivery. Support person present. Oriented to unit, room, information board, rooming in, admission packet and security measures. Patient verbalizes understanding.
--- NOTE | 2020-08-07 13:05 | PC.NURSE ---
Mother called out for assist with feeding., reporting eagerly fed for first feeding. Mother breastfed for 10 minutes then gave a bottle. Reviewed feeding cues, frequencies, duration of feedings, feeding elimination flow sheet, and signs of adequate intake. Demonstrated stimulation techniques to wake for feeding. Assisted with to breast. Reviewed positioning/alignment in cross cradle, holding breast in ?U? hold and guided asymmetrical latch on. able to latch correctly. nursed eagerly, with steady draws and frequent swallowing noted. Reviewed signs of a correct latch, effective nursing and suck swallow ratio. would slip to shallow latch, mother reports tenderness. Demonstrated how to adjust latch more deeply while feeding. Mother reports she can feel change in latch and has no tenderness. Nipple care reviewed of lanolin after feedings, warm compresses and gel pads as needed. Suggested mother stimulate while feeding to increase stimulate, increase intake and to assist with maintaining deep latch. Instructed mother to call out for RN assistance if she is unable to latch infant for feeding or she has discomfort with nursing. Instructed feeding should be initiated three hours from start of last feeding or if feeding cues are noted before. Mother voiced understanding of information shared.
[2020-08-08 00:20] VITALS: BP 103/71; PULSE 104; RESP 16; TEMP 37.1; O2SAT 98
[2020-08-08] MEDS: HYDROcodone/acetaminophen (*CRX) 5-325 MG TABLET 1 TAB PO (03:02)
[2020-08-08 04:45] VITALS: BP 120/69; PULSE 100; RESP 16; TEMP 36.8; O2SAT 99
[2020-08-08 05:37] LABS: Hematocrit 27.7 % (37.0-47.0)
[2020-08-08 07:35] VITALS: BP 127/74; PULSE 112; RESP 16; TEMP 36.9; O2SAT 100
--- NOTE | 2020-08-08 08:25 | WPDANLDPN2 ---
Anes-Prog Note L&D Date/Time: 08/08/20 08:25 Comfortable throughout: labor Neuraxial method: epidural Epidural/Spinal procedure site: clean & non-tender Neuro status: Neuro function grossly intact. Cardiovascular status: normal Respiratory status: normal Airway patency: baseline Mental status: baseline Post-Op hydration status: normal Vital Signs: Last Vital Signs Temp 36.8 C 08/08/20 04:45 Pulse 100 08/08/20 04:45 Resp 16 08/08/20 04:45 BP 120/69 08/08/20 04:45 Pulse Ox 99 08/08/20 04:45 Pain score (VAS): none Patient feedback: Patient satisfied with anesthetic care.
[2020-08-08] MEDS: DOCUSATE SODIUM 100 MG CAPSULE PO ×2 (09:32→16:11)
[2020-08-08] MEDS: POLYSACCHARIDE IRON COMPLEX 150 MG CAPSULE PO ×2 (09:32→16:11)
--- NOTE | 2020-08-08 10:21 | PM.OBPNVD ---
OB - PN: Subj Subjective Date/time seen: 08/08/20 10:21 PPD#1 Maren reports doing well today, would like to go home this afternoon. She reports her bleeding is light. Her pain is controlled. She is ambulating. her bleeding is light. She has tolerated regular diet. She has voided and passed gas. She would like her son to get circumcised. She is breast and bottle feeding. She denies fever, chills, CP, SOB, LINDA, vision changes, N/V, palpitations or dizziness. OB - PN: Obj Data Labs CBC & Chem 7: 08/08/20 03:12 Labs: Laboratory Results - last 24 hr 08/08/20 03:12 Hgb 9.0 L Hct 27.7 L OB - PN A/P Assessment and Plan (1) Status post vaginal delivery: Status: Acute (2) Second degree perineal laceration: Code(s): O70.1 - Second degree perineal laceration during delivery Status: Acute Plan day: 1 Plan: routine care and discharge home Comments: - f/u in 4 wks - pelvic rest, take meds as prescribed - ER return precautions discussed: abd pain/n/v, fever, bleeding, htn - Her son was circumcised w/o issue Time Spent With Patient Time: Total time spent is greater than 50% in coordination of care (as documented) at patient's floor/unit and/or counseling patient: Review of Systems Review of Systems: All systems reviewed & are unremarkable except as noted in HPI and below (HPI) Exam Const: General: cooperative, comfortable and no acute distress Nutritional Appearance: obese Resp: Effort & Inspection: normal respiratory effort and able to speak in complete sentences Auscultation: clear to auscultation bilaterally Cardio: Rate: regular rate GI: Inspection: normal to inspection and non-distended GI Palp: No abdominal tenderness and Yes Soft to palpation Auscultation: normal bowel sounds : Other: fundus firm at umbilicus Skin: General skin exam: normal color Neuro: General: patient oriented x3 Extrem: General: normal to inspection Psych: Appearance: grossly normal Affect: normal affect Attitude: cooperative
--- NOTE | 2020-08-08 16:00 | PC.NURSE ---
Patient viewed the discharge video Mother & Baby Care, The First Two Weeks . Patient was given the opportunity and encouraged to ask questions. Patient verbalized understanding of information shared and has been given the mother/baby guide for home reference.
[2020-08-08] MEDS: IBUPROFEN 600 MG TABLET PO (16:11)
[2020-08-08 19:00] VITALS: BP 113/80; PULSE 98; RESP 18; TEMP 36.9; O2SAT 100
[2020-08-09 09:45] VITALS: BP 119/75; PULSE 78; RESP 18; TEMP 36.9; O2SAT 100
[2020-08-09] MEDS: DOCUSATE SODIUM 100 MG CAPSULE PO (10:01)
[2020-08-09] MEDS: POLYSACCHARIDE IRON COMPLEX 150 MG CAPSULE PO (10:02)
[2020-08-09] MEDS: IBUPROFEN 600 MG TABLET PO (10:02)
[2020-08-12 10:25] VITALS: BP 117/86; PULSE 77; RESP 16; TEMP 37; O2SAT 99
--- NOTE | 2020-08-24 07:11 | PM.OBDSVD ---
DS: Admitting Diagnosis Admitting Diagnosis Admitting Diagnosis: induction of labor DS: Discharge Diagnosis Discharge Diagnosis (1) Second degree perineal laceration: Code(s): O70.1 - Second degree perineal laceration during delivery Status: Acute (2) Status post vaginal delivery: Status: Acute OB - DS: Summary OB Procedures : Ultrasound OB Procedures Intrapartum: Spontaneous Vag Delivery OB Procedures: : None Peripartum Data Delivery Method: Natural Vaginal Laceration Description: Perineal - 2nd Degree and Labial complications: none 1: Gender: Male Disposition of : home Status at Discharge Functional status at discharge: independent ambulation Overall status at discharge: patient is back to baseline Time Spent with Patient Time attestation: Total time spent providing and/or coordinating discharge services: Exam Const: General: cooperative, healthy appearing, comfortable and no acute distress Resp: Effort & Inspection: normal respiratory effort and able to speak in complete sentences Auscultation: clear to auscultation bilaterally Cardio: Rate: regular rate GI: Inspection: normal to inspection and non-distended GI Palp: No abdominal tenderness and Yes Soft to palpation Auscultation: normal bowel sounds : Other: fundus firm Skin: General skin exam: normal color Neuro: General: patient oriented x3 Extrem: General: normal to inspection Psych: Appearance: grossly normal Affect: normal affect Attitude: cooperative Discharge Plan Discharge Attending physician on discharge: Iliana Yeung Discharging Clinician: Iliana Yeung Anticipated Discharge Date/Time: 08/08/20 17:00 Patient Disposition: Home, Self-Care Activity: pelvic rest Diet: regular Discharge Instructions: Education: Mom and Baby Guide Given to: Mother Follow-Up: Call your delivering provider's office for an appointment to be seen in: 4 Weeks Mom and baby should come to the [facility] for the follow-up appointment. Appointment Date/Time: August 12, 2020 at 10:00 am What to expect at your follow-up visit: Blood Pressure Check Physical Assessment Call [phone] if you are unable to keep your appointment time. BREAST CARE: * Wear a snug supportive bra. * For engorgement discomfort: Breast Feeding: * Apply warm moist washcloths * Express milk as needed to relieve engorgement * Wear loose clothing * For sore nipples: * Identify correct latch-on * Apply warm moist washcloths before and after nursing * Air dry nipples after nursing * May apply Lansinoh cream to nipples EPISIOTOMY/PERINEAL CARE: * Until bleeding stops, use your taran bottle after urinating * Change your pad frequently throughout the day * You may take sitz baths several times a day (fill your bathtub with warm water and soak for 20 minutes.) Do NOT bathe in the water * No tub baths until seen by your physician - You may shower ACTIVITY: * Rest as much as possible. * Do not exercise or lift anything heavier than your baby (such as laundry or other children.) * Avoid stairs or driving as much as possible. * Do not put anything into the vagina. No douching, tampons, or sexual activity until seen by physician. NOTIFY PHYSICIAN IF YOU HAVE ANY QUESTIONS OR IF ANY OF THE FOLLOWING SYMPTOMS OCCUR: * If your perineum becomes red, swollen, or more painful than what you have experienced in the hospital. * If your vaginal bleeding becomes foul smelling. * If your vaginal bleeding becomes more heavy than a period or if your bleeding changes from pink to bright red. However, you may pass an occasional walnut-sized clot once or twice for the first week . * If you experience a sharp, shooting pain in you calves. * If you discover a hard, reddened area on your prabhjot
== END 2020-08-09 13:52 | disposition home or self-care (01) | DRG 560 ==
LOC: ANHLDR 06:59 → ANHOB2 08-07 11:46
PROVIDERS: Admitting Provider Obstetrics & Gynecology; Visit Provider Obstetrics & Gynecology
DX: O99.214 Obesity complicating childbirth (principal); Z37.0 Single live birth; Z3A.39 39 weeks gestation of pregnancy; E66.9 Obesity, unspecified; O42.92 Full-term premature rupture of membranes, unspecified as to length of time between rupture and onset of labor; O70.1 Second degree perineal laceration during delivery
CPT/HCPCS: 36415; 85014; 85018; 85025; 86592; 86850; 86900; 86901; A9270; J0290; J2405; J2590; J2795; J3010; J7030; J7120

== ENCOUNTER 2020-09-29 20:29 | Emergency (ER) | payer OTHER, SELFPAY ==
--- NOTE | ~2020-09-29 | XR_ITS ---
EXAMINATION: XR shoulder RT min 2V DATE: 09/29/2020 20:44 INDICATION: Right shoulder injury and pain. TECHNIQUE: 4 views of right shoulder were obtained. COMPARISON: None. FINDINGS: Bone alignment is normal. No fracture. Joint spaces are well maintained. IMPRESSION: 1. Normal right shoulder. Reviewed, dictated and finalized at location A. IMPRESSION: 1. Normal right shoulder.
[2020-09-29 20:30] VITALS: BP 115/82; PULSE 88; RESP 20; TEMP 36.7; O2SAT 100
--- NOTE | 2020-09-29 23:01 | ED.GENADULT ---
HPI - General Adult General Chief complaint: Extremity Injury, Upper Stated complaint: fall down stairs/ shoulder injury Time Seen by Provider: 09/29/20 22:39 History of Present Illness HPI narrative: Patient is a 25-year-old female presents the emergency department chief complaint of right shoulder pain. Patient reports that she fell down the stairs struck her shoulder against the wall reports that when she did this she felt a pop and reported pain in the anterior shoulder. Patient states the pain is worse with range of motion denies focal weakness reported that initially when it happened she felt a tingling sensation in her arm patient states that subsequently resolved. Patient denies any other injuries denies head injury denies loss of consciousness. Related Data Home Medications Medication Instructions Recorded Confirmed ferrous sulfate [Iron (ferrous 325 mg PO DAILY 09/29/20 sulfate)] Allergies Allergy/AdvReac Type Severity Reaction Status Date / Time No Known Allergies Allergy Verified 09/29/20 21:18 Review of Systems Review of Systems: A 10 system review of systems was completed on the patient and is negative except for what is stated in the HPI. Nursing and ancillary documentation was reviewed. [facility] Family History Family History Other Unknown family medical history Social History Social History Smoking status: Never smoker Second hand tobacco smoke exposure: No Substance use: never Gender identity (if verbalized by the patient): Female Spiritual care concerns: No Exam Narrative: GENERAL: Well-appearing, well-nourished, and in no acute distress. HEAD: Normocephalic, atraumatic. EYES: PERRLA and EOMI. ENT: Nares clear, no rhinorrhea or epistaxis. Mucous membranes moist. NECK: Supple. CHEST: Clear to auscultation. No respiratory distress. HEART: Regular rate and rhythm. No murmur heard. Normal peripheral pulses. ABDOMEN: Soft, nontender, nondistended, normal active bowel sounds. EXTREMITIES: Normal range of motion. No edema. There is tenderness to palpation in the anterior shoulder on the right side there is no deformity noted. Patient has intact motor and sensory distal to the injury patient does have limited active range of motion of the right shoulder due to pain. SKIN: Warm, dry, no rash. NEURO: No focal deficits. Alert and oriented x3. PSYCH: Normal mood and affect. Course Vital Signs Vital signs: Vital Signs Temperature 36.7 C 09/29/20 20:30 Pulse Rate 88 09/29/20 20:30 Respiratory Rate 20 09/29/20 20:30 Blood Pressure 115/82 09/29/20 20:30 Pulse Oximetry 100 09/29/20 20:30 Temperature 36.7 C 09/29/20 20:30 Pulse Rate 88 09/29/20 20:30 Respiratory Rate 20 09/29/20 20:30 Blood Pressure 115/82 09/29/20 20:30 Pulse Oximetry 100 09/29/20 20:30 Medical Decision Making Vital Signs Vital Signs: Vital Signs Temperature 36.7 C 09/29/20 20:30 Pulse Rate 88 09/29/20 20:30 Respiratory Rate 20 09/29/20 20:30 Blood Pressure 115/82 09/29/20 20:30 Pulse Oximetry 100 09/29/20 20:30 Temperature 36.7 C 09/29/20 20:30 Pulse Rate 88 09/29/20 20:30 Respiratory Rate 09/29/20 20:30 Blood Pressure 115/82 09/29/20 20:30 Pulse Oximetry 100 09/29/20 20:30 Discharge Plan Discharge Clinical Impression: Shoulder sprain Patient Disposition: Home, Self-Care Condition: Stable Instructions: Antibiotic Form, How to Use a Sling (ED), Shoulder Sprain (ED), Shoulder Pain (ED) Prescriptions: No Action ferrous sulfate [Iron (ferrous sulfate)] 325 mg (65 mg iron) Tablet 325 mg PO DAILY RF: 0 Follow-up/Referrals: Salvador Narayanan MD [Physician] - PHYSICIAN,ADVICE LINE RN [Primary Care Provider] - Time of Disposition: 23:03
[2020-09-29] MEDS: IBUPROFEN 600 MG TABLET PO (23:22)
[2020-09-29 23:30] VITALS: BP 112/76; PULSE 82; RESP 16; O2SAT 100
== END 2020-09-29 23:30 | disposition home or self-care (01) ==
PROVIDERS: Emergency Provider Emergency Medicine
DX: S43.401A Unspecified sprain of right shoulder joint, initial encounter (principal); W10.9XXA Fall (on) (from) unspecified stairs and steps, initial encounter
CPT/HCPCS: 73030; 99283; A4565; A9270

== ENCOUNTER 2020-10-03 23:19 | Emergency (ER) | payer OTHER, SELFPAY ==
--- NOTE | ~2020-10-03 | XR_ITS ---
EXAMINATION: XR chest 2V DATE: 10/03/2020 23:35 INDICATION: Chest tightness. Dyspnea. TECHNIQUE: Frontal and lateral views of the chest were obtained. COMPARISON: None. FINDINGS: There is no pneumonia, pleural effusion, or pneumothorax. The heart size is normal. IMPRESSION: 1. No acute cardiopulmonary disease. Reviewed, dictated and finalized at location A.
--- NOTE | ~2020-10-03 | CT_ITS ---
EXAMINATION: CT abdomen pelvis w con DATE: 10/04/2020 02:15 INDICATION: Epigastric pain. Nausea. TECHNIQUE: Computed tomography (CT) of the abdomen and pelvis was performed with 100 cc Omnipaque 350 intravenous contrast. The dose-length product was 721.41 mGy-cm. Automated exposure control and iter ative reconstruction technique were employed. COMPARISON: None. FINDINGS: Lung bases are unremarkable. Heart size normal. No significant pleural or pericardial effus ion. Gallbladder is mildly distended, although no secondary findings to suggest cholecystitis. The li mari, spleen, pancreas, adrenal glands and kidneys are unremarkable. No hydronephrosis. IUD present. N o abnormal pelvic masses or fluid collections. No significant vascular abnormality. No lymphadenopath y. No acute osseous abnormality. IMPRESSION: 1. No acute abdominal abnormality. Reviewed, dictated and finalized at location A.
--- NOTE | 2020-10-03 23:20 | ECG_ITS ---
Measurements Intervals [place] Rate: 82 P: 33 OR: 149 QRS: 29 QRSD: 97 T: 7 QT: 380 QTc: 445 Interpretive Statements SINUS RHYTHM EARLY PRECORDIAL R/S TRANSITION BORDERLINE ECG Electronically Signed On 10-04-2020 8:04:04 CDT by Lenny Abbott D.O.
[2020-10-03 23:38] LABS: Basophils Percent Auto 0.3 % (0.2-1.2); Eosinophils Absolute Auto 0.1 K/mm3 (0-0.3); Hematocrit 35.4 % (37.0-47.0); Hemoglobin 11.1 g/dL (12.0-15.0); Immature Granulocyte Absolute 0.05 K/mm3 (0.00-0.031); Immature Granulocyte Percent A 0.5 % (0-0.5); Lymphocytes Absolute Auto 3.96 K/mm3 (0.9-3.2); Lymphocytes Percent Auto 37.4 % (18.3-44.2); Mean Corpuscular HGB Conc 31.4 g/dl (32-36); Mean Corpuscular Volume 86.1 fl (80-100); Mean Platelet Volume 10.4 fl (7.4-10.4); Monocytes Absolute Auto 0.6 K/mm3 (0.1-0.6); Monocytes Percent Auto 5.4 % (2.6-8.5); Neutrophils Absolute Auto 5.9 K/mm3 (1.3-6.7); Neutrophils Percent Auto 55.4 % (45.5-73.1); Platelet Count Result 375 k/mm3 (150-375); Red Blood Count 4.11 M/mm3 (4.2-5.4); Red Cell Distribution Width 13.8 % (11.5-14.5); White Blood Count 10.6 K/mm3 (4.5-10.0)
[2020-10-03 23:44] VITALS: BP 124/73; PULSE 83; RESP 18; TEMP 36.1; O2SAT 100
[2020-10-03 23:48] LABS: Anion Gap 12 mmol/L (8-16); Blood Urea Nitrogen 12 mg/dL (7-17); Calcium 9.6 mg/dL (8.4-10.2); Carbon Dioxide 25 mmol/L (22-30); Chloride 100 mmol/L (98-107); Estimated CRCL calculation 83 ml/min; Estimated Glomerular Filt Rate > 60; Glucose 105 mg/dL (65-110); Potassium 3.3 mmol/L (3.4-5.0); Sodium 137 mmol/L (137-145)
[2020-10-03 23:51] LABS: INR 0.8; Prothrombin Time 11.4 Seconds (11.1-14.7)
[2020-10-03 23:52] LABS: Partial Thromboplastin Time 24.9 SECONDS (22.3-36.8)
[2020-10-04 00:01] LABS: Troponin I < 0.012 ng/mL (0.000-0.034)
--- NOTE | 2020-10-04 01:04 | ED.CHESTPAIN ---
HPI - Chest Pain History of Present Illness HPI narrative: Intermittent epigastric/chest pain for a few hours. Feels like squeezing. Radiates to back. Associated with nausea, vomitingx1, and SOB when pain is severe. This is a new problem. Related Data Home Medications Medication Instructions Recorded Confirmed ferrous sulfate [Iron (ferrous 325 mg PO DAILY 09/29/20 sulfate)] Allergies Allergy/AdvReac Type Severity Reaction Status Date / Time No Known Allergies Allergy Verified 10/04/20 00:24 Review of Systems Review of Systems: All systems reviewed & are unremarkable except as noted in HPI and below Constitutional: Constitutional: Denies fever(s) Gastrointestinal: Gastrointestinal: Denies constipation and Denies diarrhea Genitourinary: Genitourinary: Reports no additional female genitourinary complaints Neurologic: Denies dizziness and Denies weakness [facility] Family History Family History Other Unknown family medical history Social History Social History Smoking status: Never smoker Second hand tobacco smoke exposure: No Substance use: never Gender identity (if verbalized by the patient): Female Spiritual care concerns: No Exam Const: General: healthy appearing, no acute distress and alert Orientation/consciousness: patient oriented x3 HENMT: Head: normal to inspection Neck: Neck: normal visual inspection and no lymphadenopathy Chest: Chest palpation & inspection: no tenderness Resp: Effort & Inspection: normal respiratory effort Auscultation: clear to auscultation bilaterally, no rales, no rhonchi and no wheezes Cardio: Jugular venous distension: no JVD Rate: regular rate Rhythm: regular rhythm Heart sounds: no murmurs GI: Inspection: non-distended GI Palp: Yes Soft to palpation, Yes Tenderness to palpation present (GI) (epigastrium), No Guarding due to palpation present (GI) and No Rebound tenderness present Auscultation: normal bowel sounds Skin: General skin exam: normal color Neuro: General: patient oriented x3 and moves all extremities Speech: normal speech Extrem: General: no edema Psych: Appearance: well kempt Affect: normal affect Course Vital Signs Vital signs: Vital Signs Temperature 36.1 C L 10/03/20 23:44 Pulse Rate 83 10/03/20 23:44 Respiratory Rate 18 10/03/20 23:44 Blood Pressure 124/73 10/03/20 23:44 Pulse Oximetry 100 10/03/20 23:44 Temperature 36.1 C L 10/03/20 23:44 Pulse Rate 83 10/04/20 04:24 Respiratory Rate 18 10/04/20 04:24 Blood Pressure 124/87 10/04/20 04:24 Pulse Oximetry 99 10/04/20 04:24 MDM - Chest Pain Differential Diagnosis Differential diagnosis: Likely chest pain, biliary colic and other (GERD) Medical Records Data Attestation: I reviewed the patient's medical records. Lab Data Attestation: I reviewed the patient's lab results. Result diagrams: 10/03/20 23:29 10/03/20 23:29 Labs: Lab Results 10/03/20 10/03/20 10/03/20 Range/Units 23:29 23:29 23:29 WBC 10.6 H (4.5-10.0) K/mm3 RBC 4.11 L (4.2-5.4) M/mm3 Hgb 11.1 L (12.0-15.0) g/dL Hct 35.4 L (37.0-47.0) % MCV 86.1 (80-100) fl MCH 27.0 (26-34) pg MCHC 31.4 L (32-36) g/dl RDW 13.8 (11.5-14.5) % Plt Count 375 D (150-375) k/mm3 MPV 10.4 (7.4-10.4) fl Immature Gran % (Auto) 0.5 (0-0.5) % Neut % (Auto) 55.4 (45.5-73.1) % Lymph % (Auto) 37.4 (18.3-44.2) % [place] % (Auto) 5.4 (2.6-8.5) % Eos % (Auto) 1.0 (0-4.4) % Baso % (Auto) 0.3 (0.2-1.2) % Lymph # (Auto) 3.96 H (0.9-3.2) K/mm3 [place] # (Auto) 0.6 (0.1-0.6) K/mm3 Eos # (Auto) 0.1 (0-0.3) K/mm3 Baso # (Auto) 0.0 (0.0-0.1) K/mm3 Abs Immat Gran (auto) 0.05 H (0.00-0.031) K/mm3 Absolute Neuts (auto) 5.9 (1.3-6.7) K/mm3 Absolute Nucleated
[2020-10-04 01:53] VITALS: BP 126/82; PULSE 80; RESP 14; O2SAT 100
[2020-10-04 02:08] LABS: Alanine Aminotransferase 33 U/L (4-35); Albumin Level 4.5 g/dL (3.5-5.1); Alkaline Phosphatase 75 U/L (38-126); Aspartate Amino Transferase 53 U/L (14-36); Bilirubin,Total 0.3 mg/dL (0.2-1.3); Lipase 90 U/L (23-300)
[2020-10-04 03:46] LABS: Troponin I < 0.012 ng/mL (0.000-0.034)
[2020-10-04 04:24] VITALS: BP 124/87; PULSE 83; RESP 18; O2SAT 99
== END 2020-10-04 04:28 | disposition home or self-care (01) ==
PROVIDERS: Emergency Provider Emergency Medicine
DX: R10.13 Epigastric pain (principal); R94.31 Abnormal electrocardiogram [ECG] [EKG]
CPT/HCPCS: 36415; 71046; 74177; 80048; 80076; 81025; 83690; 84484; 85025; 85610; 85730; 93005; 99284; Q9967

== ENCOUNTER 2020-10-26 21:59 | Emergency (ER) | payer OTHER, SELFPAY ==
[2020-10-26] VITALS (7 sets, daily range): BP systolic 111–121; BP diastolic 63–75; PULSE 90–102; RESP 13–18; TEMP 36.3; O2SAT 100
--- NOTE | ~2020-10-26 | XR_ITS ---
EXAMINATION: XR chest 1V portable INDICATION: Midsternal and epigastric chest pain TECHNIQUE: Portable AP chest at 2222 hours COMPARISON: 10/03/2020 FINDINGS: The lungs are free of acute opacities. There is no pleural effusion or pneumothorax. The ca rdiomediastinal silhouette is normal. The visualized bones and soft tissues are unremarkable. IMPRESSION: 1. No acute cardiopulmonary abnormality. Reviewed, dictated and finalized at location A.
--- NOTE | 2020-10-26 22:01 | ECG_ITS ---
Measurements Intervals [place] Rate: 85 P: 26 [place]: 158 QRS: 25 QRSD: 81 T: 7 QT: 375 QTc: 447 Interpretive Statements SINUS RHYTHM NORMAL ECG Electronically Signed On 10-27-2020 6:02:01 CDT by Lenny Abbott D.O.
[2020-10-26 22:29] LABS: Basophils Percent Auto 0.2 % (0.2-1.2); Eosinophils Absolute Auto 0.1 K/mm3 (0-0.3); Hemoglobin 11.7 g/dL (12.0-15.0); Immature Granulocyte Absolute 0.02 K/mm3 (0.00-0.031); Immature Granulocyte Percent A 0.2 % (0-0.5); Lymphocytes Absolute Auto 3.17 K/mm3 (0.9-3.2); Mean Corpuscular HGB Conc 31.6 g/dl (32-36); Mean Corpuscular Hemoglobin 27.2 pg (26-34); Mean Platelet Volume 10.9 fl (7.4-10.4); Monocytes Absolute Auto 0.4 K/mm3 (0.1-0.6); Monocytes Percent Auto 4.4 % (2.6-8.5); Neutrophils Absolute Auto 5.1 K/mm3 (1.3-6.7); Neutrophils Percent Auto 58.2 % (45.5-73.1); Platelet Count Result 335 k/mm3 (150-375); Red Cell Distribution Width 14.3 % (11.5-14.5); White Blood Count 8.8 K/mm3 (4.5-10.0)
--- NOTE | 2020-10-26 22:31 | ED.CHESTPAIN ---
HPI - Chest Pain General Chief Complaint: Chest Pain Stated Complaint: chest pain with trouble breathing Time Seen by Provider: 10/26/20 22:13 Source: patient Mode of arrival: ambulatory Limitations: no limitations History of Present Illness HPI narrative: Patient is a 21-year-old female complaining of chest pain, substernal, sharp, was 6 out of 10 earlier, currently no pain, nonradiating accompanied by occasional weakness and headache but denies any headache or weakness now, states that all the symptoms are intermittent and its been going on for more than a month. Patient states that she was here a month ago for the same complaints. Patient states that last month she stopped drinking carbonated drinks which provided relief to her symptoms, but claims that she has not drank any carbonated drinks lately. Patient states that she does have a history of anxiety and has not taken any medication for it since high school, stopped it on her own since it was not working. Patient currently denies any symptoms. Patient denies any shortness of breath, abdominal pain, nausea, vomiting, diaphoresis, fever or chills. Related Data Home Medications Medication Instructions Recorded Confirmed No Home Medications 10/26/20 10/26/20 Allergies Allergy/AdvReac Type Severity Reaction Status Date / Time No Known Allergies Allergy Verified 10/26/20 22:15 Review of Systems Review of Systems: All systems reviewed & are unremarkable except as noted in HPI and below Constitutional: Constitutional: Denies body ache(s), Denies chills, Denies excessive sweating, Denies fatigue, Denies fever(s), Denies headache(s), Denies lethargy, Denies malaise and Denies weight loss Eyes: Eyes: Denies blurry vision, Denies change in vision and Denies loss of vision ENT: Denies dizziness, Denies ear discharge, Denies headache(s), Denies lip swelling, Denies epistaxis, Denies nasal congestion, Denies neck pain, Denies throat swelling and Denies tongue swelling Cardiovascular: Cardiovascular: Denies diaphoresis, Denies rapid heart rate, Denies edema, Denies irregular heart rhythm, Denies lightheadedness, Denies palpitations, Denies dyspnea and Denies dyspnea on exertion Respiratory: Respiratory: Denies chest congestion, Denies cough, Denies hemoptysis, Denies dyspnea and Denies dyspnea on exertion Gastrointestinal: Gastrointestinal: Denies abdominal pain, Denies melena, Denies hematochezia, Denies diarrhea, Denies nausea, Denies vomiting and Denies hematemesis Musculoskeletal: Musculoskeletal: Denies abnormal gait, Denies deformity, Denies joint swelling, Denies limited range of motion, Denies neck pain and Denies numbness Neurologic: Denies Abnormal speech present, Denies abnormal gait, Denies confusion, Denies dizziness, Denies focal weakness, Denies loss of vision, Denies numbness, Denies Other visual disturbances and Denies Sensory deficit (Neuro) Psychiatric: Psychiatric: Denies confusion, Denies depression, Denies auditory hallucinations, Denies homicidal ideation and Denies suicidal ideation Endocrine: Endocrine: Denies cold intolerance, Denies excessive sweating, Denies fatigue, Denies heat intolerance and Denies palpitations Hematologic/Lymphatic: Hematologic/Lymphatic: Denies easy bleeding and Denies easy bruising Allergic/Immunologic: Allergic/Immunologic: Denies lip swelling, Denies throat swelling and Denies tongue swelling PMFSH Family History Family History Other Unknown family medical history Social History Social History Smoking status: Never smoker Second hand tobacco smoke exposure: No Substance use: never Gender identity (if verbalized by the patient): Female Spiritual care concerns: No Comments Past medical history: None Family history negative for coronary disease or early [place] Social history: Non-smoker no EtOH or drug use
[2020-10-26 22:39] LABS: Anion Gap 8 mmol/L (8-16); Blood Urea Nitrogen 16 mg/dL (7-17); Calcium 9.3 mg/dL (8.4-10.2); Carbon Dioxide 25 mmol/L (22-30); Chloride 105 mmol/L (98-107); Estimated CRCL calculation 105 ml/min; Estimated Glomerular Filt Rate > 60; Glucose 102 mg/dL (65-110); Potassium 3.8 mmol/L (3.4-5.0); Sodium 138 mmol/L (137-145)
[2020-10-26 22:40] LABS: INR 0.9; Prothrombin Time 11.9 Seconds (11.1-14.7)
[2020-10-26 22:41] LABS: Partial Thromboplastin Time 25.7 SECONDS (22.3-36.8)
[2020-10-26 22:51] LABS: Troponin I < 0.012 ng/mL (0.000-0.034)
[2020-10-26 23:00] LABS: Lipase 101 U/L (23-300)
== END 2020-10-27 00:01 | disposition home or self-care (01) ==
PROVIDERS: Emergency Medicine; Emergency Provider Emergency Medicine
DX: R07.89 Other chest pain (principal)
CPT/HCPCS: 36415; 71045; 80048; 83690; 84484; 85025; 85610; 85730; 93005; 99284

== ENCOUNTER 2020-11-22 18:43 | Emergency (ER) | payer OTHER, SELFPAY ==
[2020-11-22 18:45] VITALS: BP 125/77; PULSE 99; RESP 28; TEMP 36.4; O2SAT 99
[2020-11-22 19:08] LABS: Basophils Percent Auto 0.4 % (0.2-1.2); Eosinophils Absolute Auto 0.1 K/mm3 (0-0.3); Eosinophils Percent Auto 1.2 % (0-4.4); Hematocrit 36.8 % (37.0-47.0); Hemoglobin 12.2 g/dL (12.0-15.0); Immature Granulocyte Absolute 0.01 K/mm3 (0.00-0.031); Immature Granulocyte Percent A 0.1 % (0-0.5); Lymphocytes Absolute Auto 3.29 K/mm3 (0.9-3.2); Lymphocytes Percent Auto 35.3 % (18.3-44.2); Mean Corpuscular HGB Conc 33.2 g/dl (32-36); Mean Corpuscular Volume 84.4 fl (80-100); Mean Platelet Volume 10.8 fl (7.4-10.4); Monocytes Absolute Auto 0.6 K/mm3 (0.1-0.6); Monocytes Percent Auto 6.8 % (2.6-8.5); Neutrophils Absolute Auto 5.3 K/mm3 (1.3-6.7); Neutrophils Percent Auto 56.2 % (45.5-73.1); Platelet Count Result 372 k/mm3 (150-375); Red Blood Count 4.36 M/mm3 (4.2-5.4); Red Cell Distribution Width 14.2 % (11.5-14.5); White Blood Count 9.3 K/mm3 (4.5-10.0)
[2020-11-22 19:24] LABS: Alanine Aminotransferase 33 U/L (4-35); Albumin Level 4.9 g/dL (3.5-5.1); Alkaline Phosphatase 72 U/L (38-126); Anion Gap 12 mmol/L (8-16); Aspartate Amino Transferase 34 U/L (14-36); Bilirubin,Total 0.3 mg/dL (0.2-1.3); Blood Urea Nitrogen 11 mg/dL (7-17); Calcium 10.2 mg/dL (8.4-10.2); Carbon Dioxide 23 mmol/L (22-30); Chloride 104 mmol/L (98-107); Estimated CRCL calculation 103 ml/min; Estimated Glomerular Filt Rate > 60; Glucose 95 mg/dL (65-110); Lipase 82 U/L (23-300); Potassium 3.8 mmol/L (3.4-5.0); Sodium 139 mmol/L (137-145)
--- NOTE | 2020-11-22 19:54 | PC.NURSE ---
Pt stated to triage nurse that she didn't want to wait any longer and pt seen leaving ED wr.
--- NOTE | 2020-11-22 20:10 | PC.NURSE ---
pt left d/t wait time, was encouraged to return if s/s increased or worsened. pt agreeable
== END 2020-11-22 20:10 | disposition left against medical advice (07) ==
PROVIDERS: Emergency Medicine
DX: R10.9 Unspecified abdominal pain (principal)
CPT/HCPCS: 36415; 80053; 83690; 85025; 99199

== ENCOUNTER 2020-11-22 21:32 | Emergency (ER) | payer OTHER, SELFPAY ==
--- NOTE | ~2020-11-22 | CT_ITS ---
EXAMINATION: CT abdomen pelvis w con EXAM DATE: 11/23/2020 02:43 INDICATION: Right upper quadrant pain. Nausea and vomiting. TECHNIQUE: Spiral CT of the abdomen and pelvis was performed following intravenous injection of 100 m L Omnipaque 350. Axial, coronal and sagittal images of the abdomen and pelvis were reviewed. The do se-length product (DLP) for this examination was 587.07 mGy-cm. The exposure was tailored according to patient size (auto mA exposure control), and iterative reconstruction (ASIR) was used as additiona l dose reduction technique. Comparison is made to prior examination from 10/05/2019. FINDINGS: The liver, spleen, adrenal glands and pancreas are unremarkable. There are some tiny galls tones within an otherwise unremarkable gallbladder. No evidence of obstructive biliary disease. Por luiz and splenic veins are patent. Kidneys enhance symmetrically. There is no hydronephrosis. Ther e is IUD which appears to be centrally located within the endometrium, expected position. Right ovary has the dominant follicle. The bladder is unremarkable. There is no retroperitoneal or pelvic lymp hadenopathy. The appendix is not positively visualized. There is no pericecal inflammatory change to suggest appe ndicitis. The stomach and small bowel are unremarkable. There is expected amount of colonic stool. No free intraperitoneal gas. The heart is normal in size. There are no pericardial or pleural e ffusions. The lung bases are unremarkable. The bones are unremarkable. IMPRESSION: Unremarkable CT abdomen pelvis exam. Reviewed, dictated and finalized at location A.
--- NOTE | 2020-11-22 23:16 | PC.NURSE ---
pt remains in wr. no s/s of distress. No active vomiting noted. awaiting ED room assignment.
[2020-11-23 00:11] VITALS: BP 129/113; PULSE 99; RESP 16; TEMP 37; O2SAT 100
[2020-11-23 00:37] LABS: Basophils Percent Auto 0.2 % (0.2-1.2); Eosinophils Percent Auto 0.1 % (0-4.4); Hematocrit 35.2 % (37.0-47.0); Hemoglobin 11.9 g/dL (12.0-15.0); Immature Granulocyte Absolute 0.04 K/mm3 (0.00-0.031); Immature Granulocyte Percent A 0.3 % (0-0.5); Lymphocytes Absolute Auto 1.45 K/mm3 (0.9-3.2); Lymphocytes Percent Auto 12.1 % (18.3-44.2); Mean Corpuscular HGB Conc 33.8 g/dl (32-36); Mean Corpuscular Hemoglobin 28.4 pg (26-34); Mean Platelet Volume 10.7 fl (7.4-10.4); Monocytes Absolute Auto 0.3 K/mm3 (0.1-0.6); Monocytes Percent Auto 2.6 % (2.6-8.5); Neutrophils Absolute Auto 10.2 K/mm3 (1.3-6.7); Neutrophils Percent Auto 84.7 % (45.5-73.1); Platelet Count Result 338 k/mm3 (150-375); Red Blood Count 4.19 M/mm3 (4.2-5.4); Red Cell Distribution Width 14.3 % (11.5-14.5)
[2020-11-23 00:48] LABS: Alanine Aminotransferase 34 U/L (4-35); Albumin Level 4.9 g/dL (3.5-5.1); Alkaline Phosphatase 69 U/L (38-126); Anion Gap 13 mmol/L (8-16); Aspartate Amino Transferase 48 U/L (14-36); Bilirubin,Total 0.3 mg/dL (0.2-1.3); Blood Urea Nitrogen 12 mg/dL (7-17); Calcium 10.1 mg/dL (8.4-10.2); Carbon Dioxide 23 mmol/L (22-30); Chloride 103 mmol/L (98-107); Estimated CRCL calculation 125 ml/min; Estimated Glomerular Filt Rate > 60; Glucose 133 mg/dL (65-110); Lipase 44 U/L (23-300); Potassium 4.4 mmol/L (3.4-5.0); Sodium 139 mmol/L (137-145)
[2020-11-23] MEDS: ONDANSETRON INJ 4 MG/2 ML VIAL IV PUSH (01:16)
[2020-11-23] MEDS: SODIUM CHLORIDE 0.9% IV 1,000 ML 999 ML IV CONT (01:16)
[2020-11-23] MEDS: MORPHINE SULFATE (*CRX) 4 MG/ML INJ IV PUSH (01:16)
[2020-11-23 01:19] VITALS: BP 117/78; PULSE 76; RESP 20; O2SAT 95
--- NOTE | 2020-11-23 04:19 | ED.ABDPAIN ---
HPI - Abdominal Pain General Chief Complaint: Abdominal Pain Stated Complaint: gallbladder pain Time Seen by Provider: 11/23/20 00:05 History of Present Illness HPI narrative: Patient is a 25-year-old female who presents ER with epigastric pain. Ongoing since she had her child. Worse with eating at times. Scheduled for an ultrasound this week. No fevers or chills or sweats. No radiation of pain but is persistent epigastric and right upper quadrant. Related Data Allergies Allergy/AdvReac Type Severity Reaction Status Date / Time No Known Allergies Allergy Verified 11/22/20 23:16 Review of Systems Review of Systems: All systems reviewed & are unremarkable except as noted in HPI and below Constitutional: Constitutional: Denies chills, Denies fever(s) and Denies weakness ENT: Denies nasal congestion and Denies sore throat Cardiovascular: Cardiovascular: Denies chest pain, Denies rapid heart rate and Denies radiating jaw, neck or arm pain Gastrointestinal: Gastrointestinal: Reports abdominal pain, Denies constipation, Denies diarrhea, Reports nausea and Reports vomiting Genitourinary: Genitourinary: Denies nocturia and Denies flank pain PMFSH Past Medical History Medical History (Updated 11/23/20 @ 04:27 by Ryan Lowe MD) Anxiety Surgical History Surgical History (Updated 11/23/20 @ 04:24 by Ryan Lowe MD) No pertinent past surgical history Family History Family History Other Unknown family medical history Social History Social History Smoking status: Never smoker Second hand tobacco smoke exposure: No Substance use: never Gender identity (if verbalized by the patient): Female Spiritual care concerns: No Exam Narrative: GENERAL: Well-appearing, well-nourished, and in no acute distress. HEAD: Normocephalic, atraumatic. CHEST: Clear to auscultation. No respiratory distress. HEART: Regular rate and rhythm. Normal peripheral pulses. ABDOMEN: Soft, mildly tender in the epigastrium right upper quadrant without guarding, nondistended. EXTREMITIES: Normal range of motion. No edema. SKIN: Warm, dry, no rash. NEURO: Alert and oriented x3. PSYCH: Normal mood and affect. Course Course Emergency Course: Educated by diagnosis and treatment plan. Repeat exam abdomen is benign. Discharge home with follow-up with general surgery. Will give as needed pain and nausea meds. Vital Signs Vital signs: Vital Signs Temperature 98.6 F 11/23/20 00:11 Pulse Rate 99 11/23/20 00:11 Respiratory Rate 16 11/23/20 00:11 Blood Pressure 129/113 H 11/23/20 00:11 Pulse Oximetry 100 11/23/20 00:11 Temperature 98.6 F 11/23/20 00:11 Pulse Rate 76 11/23/20 01:19 Respiratory Rate 20 11/23/20 01:19 Blood Pressure 117/78 11/23/20 01:19 Pulse Oximetry 95 11/23/20 01:19 MDM - Abdominal Pain Lab Data Result diagrams: 11/23/20 00:32 11/23/20 00:32 Labs: Lab Results 11/23/20 11/23/20 Range/Units 00:32 00:32 WBC 12.0 H (4.5-10.0) K/mm3 RBC 4.19 L (4.2-5.4) M/mm3 Hgb 11.9 L (12.0-15.0) g/dL Hct 35.2 L (37.0-47.0) % MCV 84.0 (80-100) fl MCH 28.4 (26-34) pg MCHC 33.8 (32-36) g/dl RDW 14.3 (11.5-14.5) % Plt Count 338 (150-375) k/mm3 MPV 10.7 H (7.4-10.4) fl Immature Gran % (Auto) 0.3 (0-0.5) % Neut % (Auto) 84.7 H (45.5-73.1) % Lymph % (Auto) 12.1 L (18.3-44.2) % Dup[place] % (Auto) 2.6 (2.6-8.5) % Eos % (Auto) 0.1 (0-4.4) % Baso % (Auto) 0.2 (0.2-1.2) % Lymph # (Auto) 1.45 (0.9-3.2) K/mm3 [place] # (Auto) 0.3 (0.1-0.6) K/mm3 Eos # (Auto) 0.0 (0-0.3) K/mm3 Baso # (Auto) 0.0 (0.0-0.1) K/mm3 Abs Immat Gran (auto) 0.04 H (0.00-0.031) K/mm3 Absolute Neuts (auto) 10.2 H (1.3-6.7) K/mm3 Absolute Nucleated RBC 0.0 (0.0-0.012) K/mm3 Nucleated RBC
[2020-11-23 04:43] VITALS: BP 119/76; PULSE 74; RESP 18; O2SAT 98
== END 2020-11-23 04:44 | disposition home or self-care (01) ==
PROVIDERS: Emergency Provider Emergency Medicine; PCP Internal Medicine
DX: K80.20 Calculus of gallbladder without cholecystitis without obstruction (principal)
CPT/HCPCS: 36415; 74177; 80053; 81025; 83690; 85025; 96361; 96374; 96375; 99284; J2270; J2405; J7030; Q9967

== ENCOUNTER 2020-11-26 13:27 | Outpatient (CLI) | payer OTHER, SELFPAY ==
--- NOTE | ~2020-11-26 | US_ITS ---
US right upper quadrant DATE: 11/26/2020 13:47 INDICATION: Epigastric abdominal pain history of cholelithiasis TECHNIQUE: Real-time imaging of liver, pancreas, gallbladder COMPARISON: 11/23/2020 CT abdomen pelvis FINDINGS: No hepatic or pancreatic space-occupying mass lesion is evident. Normal hepatopedal portal venous flow direction. There is thickening of the gallbladder wall, measuring up to 3.7 mm dimension, suggesting acute or ch ronic cholecystitis. Small gallstones are evident. Negative sonographic Carrington's sign. Common bile duct measures 3.6 mm, within normal limits. IMPRESSION: Cholelithiasis and nonspecific gallbladder wall thickening; negative sonographic Carrington's sign Reviewed, dictated and finalized at Location [facility]. Reviewed, dictated and finalized at location B. IMPRESSION: Cholelithiasis and nonspecific gallbladder wall thickening; negativ e sonographic Carrington's sign
== END 2020-11-26 13:28 | disposition home or self-care (01) ==
LOC: CHSIMG 13:28
PROVIDERS: PCP Internal Medicine; Visit Provider Internal Medicine
DX: R10.13 Epigastric pain (principal)
CPT/HCPCS: 76705

== ENCOUNTER 2020-12-07 04:13 | Emergency (ER) | payer OTHER, SELFPAY ==
[2020-12-07 04:22] VITALS: BP 123/79; PULSE 97; RESP 16; TEMP 36.4; O2SAT 100
--- NOTE | 2020-12-07 04:39 | ED.GENADULT ---
HPI - General Adult General Chief complaint: Abdominal Pain Stated complaint: Gallbladder flair up Time Seen by Provider: 12/07/20 04:20 History of Present Illness HPI narrative: Patient 25-year-old female presents the emergency department with chief complaint of abdominal pain. The patient reports she has history of cholelithiasis and reports that she is planning on seeing a surgeon patient states that the local surgeons at our facility were not covered by her insurance so she is currently talking with her insurance to try to find a surgeon that is covered in her network. Patient states that tonight she was on a girls night out with her family members and had some popcorn a solid and some eggs. Patient states that she laid down to go to sleep and woke up with severe pain in the right upper quadrant. The patient states that that is not improved by anything or is worsened by anything patient denies fever or chills. Related Data Allergies Allergy/AdvReac Type Severity Reaction Status Date / Time No Known Allergies Allergy Verified 12/07/20 04:28 Review of Systems Review of Systems: A 10 system review of systems was completed on the patient and is negative except for what is stated in the HPI. Nursing and ancillary documentation was reviewed. PMFSH Past Medical History Medical History Anxiety Surgical History Surgical History No pertinent past surgical history Family History Family History Other Unknown family medical history Social History Social History Smoking status: Never smoker Second hand tobacco smoke exposure: No Substance use: never Gender identity (if verbalized by the patient): Female Spiritual care concerns: No Exam Narrative: GENERAL: Well-appearing, well-nourished, and in no acute distress. HEAD: Normocephalic, atraumatic. EYES: PERRLA and EOMI. ENT: Nares clear, no rhinorrhea or epistaxis. Mucous membranes moist. NECK: Supple. CHEST: Clear to auscultation. No respiratory distress. HEART: Regular rate and rhythm. No murmur heard. Normal peripheral pulses. ABDOMEN: Soft, tender to palpation the right upper quadrant, nondistended, normal active bowel sounds. EXTREMITIES: Normal range of motion. No edema. SKIN: Warm, dry, no rash. NEURO: No focal deficits. Alert and oriented x3. PSYCH: Normal mood and affect. Course Vital Signs Vital signs: Vital Signs Temperature 36.4 C 12/07/20 04:22 Pulse Rate 97 12/07/20 04:22 Respiratory Rate 16 12/07/20 04:22 Blood Pressure 123/79 12/07/20 04:22 Pulse Oximetry 100 12/07/20 04:22 Temperature 36.4 C 12/07/20 04:22 Pulse Rate 97 12/07/20 04:22 Respiratory Rate 16 12/07/20 04:22 Blood Pressure 123/79 12/07/20 04:22 Pulse Oximetry 100 12/07/20 04:22 Medical Decision Making Vital Signs Vital Signs: Vital Signs Temperature 36.4 C 12/07/20 04:22 Pulse Rate 97 12/07/20 04:22 Respiratory Rate 16 12/07/20 04:22 Blood Pressure 123/79 12/07/20 04:22 Pulse Oximetry 100 12/07/20 04:22 Temperature 36.4 C 12/07/20 04:22 Pulse Rate 97 12/07/20 04:22 Respiratory Rate 16 12/07/20 04:22 Blood Pressure 123/79 12/07/20 04:22 Pulse Oximetry 100 12/07/20 04:22 Lab Data Result diagrams: 12/07/20 04:33 12/07/20 04:33 Labs: Lab Results 12/07/20 12/07/20 Range/Units 04:33 04:33 WBC 7.4 (4.5-10.0) K/mm3 RBC 4.62 (4.2-5.4) M/mm3 Hgb 12.7 (12.0-15.0) g/dL Hct 39.1 (37.0-47.0) % MCV 84.6 (80-100) fl MCH 27.5 (26-34) pg MCHC 32.5 (32-36) g/dl RDW 14.6 H (11.5-14.5) % Plt Count 381 H (150-375) k/mm3 MPV 10.8 H (7.4-10.4) fl Immature Gran % (Auto) 0.3 (0-0.5)
[2020-12-07 04:40] LABS: Basophils Percent Auto 0.4 % (0.2-1.2); Eosinophils Absolute Auto 0.1 K/mm3 (0-0.3); Eosinophils Percent Auto 1.1 % (0-4.4); Hematocrit 39.1 % (37.0-47.0); Hemoglobin 12.7 g/dL (12.0-15.0); Immature Granulocyte Absolute 0.02 K/mm3 (0.00-0.031); Immature Granulocyte Percent A 0.3 % (0-0.5); Lymphocytes Absolute Auto 2.72 K/mm3 (0.9-3.2); Lymphocytes Percent Auto 36.9 % (18.3-44.2); Mean Corpuscular HGB Conc 32.5 g/dl (32-36); Mean Corpuscular Hemoglobin 27.5 pg (26-34); Mean Corpuscular Volume 84.6 fl (80-100); Mean Platelet Volume 10.8 fl (7.4-10.4); Monocytes Absolute Auto 0.5 K/mm3 (0.1-0.6); Monocytes Percent Auto 6.2 % (2.6-8.5); Neutrophils Absolute Auto 4.1 K/mm3 (1.3-6.7); Neutrophils Percent Auto 55.1 % (45.5-73.1); Platelet Count Result 381 k/mm3 (150-375); Red Blood Count 4.62 M/mm3 (4.2-5.4); Red Cell Distribution Width 14.6 % (11.5-14.5); White Blood Count 7.4 K/mm3 (4.5-10.0)
[2020-12-07] MEDS: MORPHINE SULFATE (*CRX) 4 MG/ML INJ IV PUSH (04:44)
[2020-12-07] MEDS: ONDANSETRON INJ 4 MG/2 ML VIAL IV PUSH (04:45)
[2020-12-07] MEDS: SODIUM CHLORIDE 0.9% IV 1,000 ML 999 ML IV CONT (04:45)
[2020-12-07] MEDS: KETOROLAC 30 MG/ML VIAL (*BKC) IV PUSH (04:45)
[2020-12-07 04:51] LABS: Alanine Aminotransferase 41 U/L (4-35); Albumin Level 4.9 g/dL (3.5-5.1); Alkaline Phosphatase 71 U/L (38-126); Anion Gap 11 mmol/L (8-16); Aspartate Amino Transferase 59 U/L (14-36); Bilirubin,Total 0.5 mg/dL (0.2-1.3); Blood Urea Nitrogen 12 mg/dL (7-17); Calcium 9.8 mg/dL (8.4-10.2); Carbon Dioxide 27 mmol/L (22-30); Chloride 105 mmol/L (98-107); Estimated CRCL calculation 103 ml/min; Estimated Glomerular Filt Rate > 60; Glucose 131 mg/dL (65-110); Lipase 70 U/L (23-300); Potassium 3.8 mmol/L (3.4-5.0); Sodium 143 mmol/L (137-145)
[2020-12-07 06:13] VITALS: BP 120/72; PULSE 78; RESP 16; TEMP 36.7; O2SAT 100
== END 2020-12-07 06:15 | disposition home or self-care (01) ==
PROVIDERS: Emergency Provider Emergency Medicine; PCP Internal Medicine
DX: K80.50 Calculus of bile duct without cholangitis or cholecystitis without obstruction (principal)
CPT/HCPCS: 36415; 80053; 83690; 85025; 96361; 96374; 96375; 99284; J1885; J2270; J2405; J7030

== ENCOUNTER 2022-01-02 02:17 | Emergency (ER) | payer OTHER, SELFPAY ==
[2022-01-02 02:23] VITALS: BP 127/88; PULSE 115; RESP 16; TEMP 36.3; O2SAT 99
--- NOTE | 2022-01-02 04:02 | PC.NURSE ---
Reports to this RN came to ED for c/o 10 out of 10 right ear pain
--- NOTE | 2022-01-02 04:08 | ED.URI ---
HPI - URI/Sore Throat General Chief Complaint: Upper Respiratory Infection Stated Complaint: URI, throat Time Seen by Provider: 01/02/22 03:58 Source: patient and RN notes reviewed Mode of arrival: ambulatory Limitations: no limitations History of Present Illness HPI Narrative: This is a 26 year old female who presents for evaluation of right ear pain. PAtient developed mild sore throat and congestion yesterday. She also reported right ear pain. She was evaluated at an urgent care yesterday and she was told she has URI. She states they looked at her ear and they did not find infection. She also reports negative strep. Her right ear pain has worsened. She is not taking any medication for pain. She reports her right ear feels full and it is ringing. Related Data Allergies Allergy/AdvReac Type Severity Reaction Status Date / Time No Known Allergies Allergy Verified 01/02/22 02:18 Review of Systems Review of Systems: All systems reviewed & are unremarkable except as noted in HPI and below Constitutional: Constitutional: Denies chills, Denies fatigue and Denies fever(s) ENT: Denies vertigo, Reports nasal congestion and Reports sore throat Respiratory: Respiratory: Denies chest congestion and Denies cough PMFSH Past Medical History Medical History Anxiety Surgical History Surgical History No pertinent past surgical history Family History Family History Other Unknown family medical history Social History Social History Smoking status: Never smoker Second hand tobacco smoke exposure: No Substance use: never Gender identity (if verbalized by the patient): Female Spiritual care concerns: No Exam Const: General: healthy appearing, no acute distress and alert Nutritional Appearance: well nourished Orientation/consciousness: patient oriented x3 HENMT: Head: normal to inspection Ears: mastoids normal and TM abnormal (right) dull and erythematous Face and sinus: normal facial exam Mouth: Yes Normal oral and palatal mucosa present Eyes: EOM: EOMs intact bilaterally Resp: Effort & Inspection: normal respiratory effort Neuro: General: patient oriented x3, moves all extremities and CN's II-XI intact bilaterally Gait exam (Neuro): Normal gait present Psych: Mental Status: mental status grossly normal Affect: normal affect Attitude: cooperative Course Reevaluation(s) Reevaluation #1: I Discussed with patient discharge plan. She will be started on antibiotics for right ear infection. Date: 01/02/22 Time: 04:12 Vital Signs Vital signs: Vital Signs Temperature 97.4 F L 01/02/22 02:23 Pulse Rate 115 H 01/02/22 02:23 Respiratory Rate 16 01/02/22 02:23 Blood Pressure 127/88 01/02/22 02:23 Pulse Oximetry 99 01/02/22 02:23 Oxygen Delivery Room Air 01/02/22 02:23 Temperature 97.4 F L 01/02/22 02:23 Pulse Rate 115 H 01/02/22 02:23 Respiratory Rate 16 01/02/22 02:23 Blood Pressure 127/88 01/02/22 02:23 Pulse Oximetry 99 01/02/22 02:23 Oxygen Delivery Room Air 01/02/22 02:23 MDM - URI/Sore Throat Lab Data Labs: UCG Bedside Result Negative Reference Range: Negative Discharge Plan Discharge Clinical Impression: Acute right otitis media Patient Disposition: Home, Self-Care Condition: Stable Instructions: Antibiotic Form, Ear Infection (ED) Additional Instructions: Take ibuprofen for your pain. Take mucinex and decongestant. Start antibiotics for right ear infection Prescriptions: New amoxicillin 875 mg tablet 875 mg PO Q12H Qty: 20 0RF No Action hydrocodone-acetaminophen 5-325 mg tablet 1 tablet PO Q6H PRN (Reason: pain) Qty:
[2022-01-02] MEDS: IBUPROFEN 400 MG TABLET 800 MG PO (04:20)
== END 2022-01-02 04:19 | disposition home or self-care (01) ==
PROVIDERS: Emergency Provider General Practice; PCP Internal Medicine
DX: H66.91 Otitis media, unspecified, right ear (principal)
CPT/HCPCS: 81025; 99283; A9270

== ENCOUNTER 2022-02-10 09:30 | Emergency (ER) | payer OTHER, SELFPAY ==
--- NOTE | 2022-02-10 09:46 | ED.URI ---
HPI - URI/Sore Throat General Chief Complaint: Upper Respiratory Infection Stated Complaint: lightheadedness, ears ringing, sinus pressure Time Seen by Provider: 02/10/22 09:38 History of Present Illness HPI Narrative: 26-year-old female no medical problems presents to the emergency room for evaluation of sudden onset of lightheadedness, ear fullness, sinus pressure, postnasal drip, sinus congestion, productive cough, subjective fever and postnasal drip. States is taking ibuprofen on a couple of occasions since onset that has not relieved her symptoms. Related Data Allergies Allergy/AdvReac Type Severity Reaction Status Date / Time No Known Allergies Allergy Verified 01/02/22 02:18 Review of Systems Review of Systems: CONSTITUTIONAL: Denies fever, chills, or sweats. EYES: Denies visual changes, redness, or discharge. ENT: Reports rhinorrhea, congestion, and otalgia. CARDIOVASCULAR: Denies chest pain, palpitations, or edema. RESPIRATORY: Reports cough GASTROINTESTINAL: Denies abdominal pain, nausea, vomiting, or diarrhea. GENITOURINARY: Denies dysuria or hematuria. SKIN: Denies rash or itching. MUSCULOSKELETAL: Denies back pain, joint pain, or myalgia. NEUROLOGIC: Denies headache, numbness, dizziness, or weakness. PSYCHIATRIC: Denies anxiety or depression. PMFSH Past Medical History Medical History Anxiety Surgical History Surgical History No pertinent past surgical history Family History Family History Other Unknown family medical history Social History Social History Smoking status: Never smoker Second hand tobacco smoke exposure: No Substance use: never Gender identity (if verbalized by the patient): Female Spiritual care concerns: No Exam Narrative: GENERAL: Ill-appearing, well-nourished, no physical limitations, and in no acute distress. HEAD: Normocephalic, atraumatic. EYES: Conjunctivae normal, PERRLA and EOMI. ENT: External nose normal, Nares clear, no rhinorrhea or epistaxis. Mucous membranes moist. Oropharynx without tonsillar hypertrophy exudate or other lesions. External ears normal, bilateral TMs normal bilaterally NECK: Supple. No adenopathy or masses. CHEST: Clear to auscultation. No respiratory distress. No wheezes rales or rhonchi. HEART: Regular rate and rhythm. No murmur heard. Normal peripheral pulses. ABDOMEN: Soft, nontender, nondistended, normal active bowel sounds. EXTREMITIES: Normal range of motion. No edema. No clubbing or cyanosis SKIN: Warm, dry, no rash. No noted wounds NEURO: No focal deficits. Alert and oriented x3. MAEW. CN's II-XI intact bilaterally, normal gait PSYCH: Cooperative. Normal mood and affect. Discharge Plan Discharge Clinical Impression: Influenza Patient Disposition: Home, Self-Care Condition: Stable Instructions: Antibiotic Form, Influenza (ED) Additional Instructions: Alternate Tylenol and ibuprofen as needed for your body aches and headaches. Recommend staying hydrated. Prescriptions: New pseudoephedrine HCl [Sudogest] 30 mg tablet 30 mg PO Q4-6H PRN (Reason: nasal congestion) Qty: 15 0RF Rx Instructions: DNExceed 4 doses/24h No Action amoxicillin 875 mg tablet 875 mg PO Q12H Qty: 20 0RF hydrocodone-acetaminophen 5-325 mg tablet 1 tablet PO Q6H PRN (Reason: pain) Qty: 12 0RF ondansetron 4 mg tablet,disintegrating 4 mg PO Q6H PRN (Reason: nausea and vomiting) Qty: 10 0RF Follow-up/Referrals: Quincy Jeffries MD [Primary Care Provider] - Stand Alone Forms: Work/School Release IP Time of Disposition: 10:40
[2022-02-10 10:01] VITALS: BP 114/65; PULSE 130; RESP 14; TEMP 37.4; O2SAT 98
[2022-02-10 10:29] LABS: Influenza A QL RT-PCR Positive (Negative); Influenza B QL RT-PCR Negative (Negative); SARS-CoV-2 RNA PCR Negative
[2022-02-10 10:56] VITALS: PULSE 120; RESP 12; O2SAT 99
== END 2022-02-10 11:08 | disposition home or self-care (01) ==
LOC: ANHED 11:00
PROVIDERS: Emergency Medicine; Emergency Provider Nurse Practitioner Family; PCP Internal Medicine
DX: J11.1 Influenza due to unidentified influenza virus with other respiratory manifestations (principal); Z20.822 Contact with and (suspected) exposure to COVID-19
CPT/HCPCS: 87636; 99283